=== PATIENT | female | born 1935 | race Caucasian/White ===

== ENCOUNTER → 2018-09-14 09:07 | Outpatient (CLI) | payer OTHER, SELFPAY ==
[2018-09-14 10:09] LABS: Add Manual Diff / Slide Review NO; Basophils Absolute Auto 100 /uL (0-100); Eosinophils Absolute Auto 100 /uL (0-450); Eosinophils Percent Auto 1.4 % (2-4); Hematocrit 36.9 % (36-46); Hemoglobin 12.2 g/dL (12.0-16.0); Lymphocytes Absolute Auto 2000 /uL (1100-4500); Lymphocytes Percent Auto 29.5 % (25-40); Mean Corpuscular HGB Conc 33.1 % (30-36); Mean Corpuscular Hemoglobin 28.7 PG (26-34); Mean Corpuscular Volume 86.9 fL (80-100); Monocytes Absolute Auto 500 /uL (0-900); Monocytes Percent Auto 6.9 % (3-14); Neutrophils Absolute Auto 4100 /uL (1500-7000); Neutrophils Percent Auto 61.2 % (50-75); Platelet Count 303 X10^3/uL (150-400); Red Blood Cell Count 4.25 X10^6/uL (4.0-5.2); Red Cell Distribution Width 14.1 % (11.6-14.8); White Blood Cell Count 6.7 X10^3/uL (4.5-11.0)
[2018-09-14 10:22] LABS: Alanine Aminotransferase 20 IU/L (9-52); Albumin 4.2 g/dL (3.5-5.0); Albumin Globulin Ratio 1.6 (1.0-2.8); Alkaline Phosphatase 57 U/L (38-126); Aspartate Aminotransferase 19 IU/L (14-36); Bilirubin Total 0.6 mg/dL (0.2-1.3); Blood Urea Nitrogen 21 mg/dL (7-17); Calcium 9.8 mg/dL (8.4-10.2); Carbon Dioxide 28 mmol/L (22-32); Chloride 103 mmol/L (98-107); Estimated Glomerular Filt Rate > 60.0 mL/min (>60); Globulin 2.7 g/dL (1.7-4.1); Glucose 101 mg/dL (80-110); HEMOLYSIS < 15 (0-50); Magnesium 1.7 mg/dL (1.6-2.3); Potassium 4.9 mmol/L (3.4-5.1); Sodium 141 mmol/L (137-145); Total Protein 6.9 g/dL (6.3-8.2)
[2018-09-14 10:23] LABS: Hemoglobin A1C% w Est Avg Glu 5.9 % (4.0-6.0)
[2018-09-14 11:00] LABS: TSH w/ Reflex to FT4 4.09 uIU/mL (0.47-4.68)
[2018-09-14 11:15] LABS: Vitamin B12 245 pg/mL (239-931)
== END ==
PROVIDERS: PCP Student in an Organized Health Care Education/Training Program; Visit Provider Student in an Organized Health Care Education/Training Program
DX: Z13.820 Encounter for screening for osteoporosis (principal); M85.852 Other specified disorders of bone density and structure, left thigh; Z78.0 Asymptomatic menopausal state; E11.9 Type 2 diabetes mellitus without complications; Z82.62 Family history of osteoporosis; E03.9 Hypothyroidism, unspecified; R25.2 Cramp and spasm; E55.9 Vitamin D deficiency, unspecified; I10 Essential (primary) hypertension; Z79.899 Other long term (current) drug therapy
CPT/HCPCS: 36415; 77080; 80053; 82306; 82607; 83036; 83735; 84443; 85025

== ENCOUNTER → 2018-12-18 14:39 | Outpatient (CLI) | payer OTHER, MEDICARE, SELFPAY ==
--- NOTE | 2018-12-18 | DI.MG.S_ITS ---
BILATERAL DIGITAL SCREENING MAMMOGRAM 3D/2D WITH CAD: 12/18/2018 CLINICAL: Routine screening. Family history of breast cancer. Comparison is made to exams dated: 12/17/2017 mammogram, 11/11/2016 mammogram, and 11/10/2015 mammogram - [facility]. The tissue of both breasts is predominantly fatty. Current study was also evaluated with a Computer Aided Detection (CAD) system. No significant masses, calcifications, or other findings are seen in either breast. There has been no significant interval change. IMPRESSION: NEGATIVE There is no mammographic evidence of malignancy. A 1 year screening mammogram is recommended. This exam was interpreted at Station ID: [id number]. NOTE: For mammograms, a report in lay terms will be sent to the patient. Approximately 15% of breast malignancies will not be visualized mammographically. In the management of a palpable breast mass, a negative mammogram must not discourage biopsy of a clinically suspicious lesion. Electronically Signed By: Lanny friedman/suman:12/18/2018 15:36:17 letter sent: Normal Exam ACR BI-RADS Category 1: Negative [id number]
== END ==
PROVIDERS: PCP Student in an Organized Health Care Education/Training Program; Visit Provider Student in an Organized Health Care Education/Training Program
DX: Z12.31 Encounter for screening mammogram for malignant neoplasm of breast (principal); Z80.3 Family history of malignant neoplasm of breast
CPT/HCPCS: 77063; 77067

== ENCOUNTER → 2019-03-21 09:18 | Outpatient (CLI) | payer OTHER, MEDICARE, SELFPAY ==
[2019-03-21 10:43] LABS: Hemoglobin A1C% w Est Avg Glu 5.7 % (4.0-6.0)
[2019-03-21 10:47] LABS: Blood Urea Nitrogen 14 mg/dL (7-17); Calcium 9.6 mg/dL (8.4-10.2); Carbon Dioxide 31 mmol/L (22-32); Chloride 103 mmol/L (98-107); Estimated Glomerular Filt Rate > 60.0 mL/min (>60); Glucose 101 mg/dL (80-110); HEMOLYSIS < 15 (0-50); Magnesium 1.8 mg/dL (1.6-2.3); Potassium 4.3 mmol/L (3.4-5.1); Sodium 142 mmol/L (137-145)
== END ==
PROVIDERS: PCP Student in an Organized Health Care Education/Training Program; Visit Provider Student in an Organized Health Care Education/Training Program
DX: E11.9 Type 2 diabetes mellitus without complications (principal); R25.2 Cramp and spasm
CPT/HCPCS: 36415; 80048; 83036; 83735

== ENCOUNTER 2019-04-04 11:40 | Emergency (ER) | payer OTHER, SELFPAY ==
--- NOTE | 2019-04-04 11:47 | DI.RAD.S_ITS ---
PROCEDURE: XR ANKLE LT MIN 3V INDICATIONS: Injury, Pain TECHNIQUE: 3 views of the ankle were acquired. COMPARISON: None. FINDINGS: Bones: No fractures or dislocations. Ankle mortise is normally aligned. No suspicious bony lesions. Tibiotalar degenerative spurring is present mild joint space narrowing. Lateral posterior calcaneal spur Soft tissues: No tibiotalar joint effusion. Achilles tendon appears normal. IMPRESSION: No acute fracture. If the patient's pain or other symptoms persist, consider further evaluation with MRI Chronic degenerative changes as above Dictated by: Casper Mack M.D. on 04/04/2019 at 12:46 Approved by: Casper Mack M.D. on 04/04/2019 at 13:03
[2019-04-04 11:49] VITALS: BP 146/59; PULSE 71; RESP 18; TEMP 36.6; O2SAT 97
[2019-04-04 11:54] VITALS: BP 146/59; PULSE 71; RESP 18; TEMP 36.6; O2SAT 97
--- NOTE | 2019-04-04 11:55 | DI.RAD.S_ITS ---
PROCEDURE: XR FOOT LT MIN 3V INDICATIONS: foot pain after rolling ankle TECHNIQUE: 3 views of the foot were acquired. COMPARISON: None. FINDINGS: Bones: No fractures or dislocations. No suspicious bony lesions. Plantar posterior calcaneal spur. Diffuse mid foot degeneration. Soft tissues: No tibiotalar joint effusion. Achilles tendon appears normal. IMPRESSION: No fracture. If the patient's symptoms do not improve recommend followup radiographs in 10 days to assess for healing sclerosis/occult injury. Dictated by: Casper Mack M.D. on 04/04/2019 at 13:03 Approved by: Casper Mack M.D. on 04/04/2019 at 13:11
[2019-04-04 12:00] VITALS: BP 154/69; PULSE 72; RESP 17; O2SAT 99
--- NOTE | 2019-04-04 12:07 | ED.LOWEXIN ---
HPI - Extremity Injury (Lower) <Beryl Noriega, CHOPPED STRAND OPERATOR-BC - Last Filed: 04/04/19 15:00> General Chief Complaint: Extremity Injury, Lower Stated Complaint: rolled her left ankle last night, sore today Time Seen by Provider: 04/04/19 11:50 Source: patient Mode of arrival: ambulatory Limitations: no limitations History of Present Illness HPI Narrative: The patient is an 83-year-old female nonsmoker Who presents with a chief complaint of ankle pain. She states she was walking yesterday, showing friends around the area when she rolled her left ankle in. She complains of left ankle and foot pain. She has been ambulating since the incident. She denies any falling. She presents today because the pain is not fully improved. Foot. She has not taken anything for the pain. She has wrapped it with a bandage. Related Data Home Medications Medication Instructions Recorded Confirmed Fish Oil 1,200 mg PO DAILY #0 02/27/13 02/28/19 cholecalciferol (vitamin D3) 1,000 units PO DAILY #0 02/27/13 02/28/19 [Vitamin D3] vitamins A,C,X-[id number]-[id number] 14,320 1 cap PO BID 10/23/18 04/04/19 unit-226 mg-200 unit capsule aspirin 81 mg tablet,delayed 81 mg PO DAILY 02/28/19 04/04/19 release Disabled Parking Permit 1 ea MISCELLANEOUS DIRECTED 04/04/19 escitalopram oxalate 10 mg PO DAILY 04/04/19 04/04/19 gabapentin [Neurontin] 300 mg PO BEDTIME 04/04/19 04/04/19 oxybutynin chloride 5 mg PO DAILY 04/04/19 04/04/19 potassium chloride 40 meq PO BID 04/04/19 04/04/19 simvastatin [Zocor] 20 mg PO DAILY 04/04/19 04/04/19 trazodone 50 mg PO BEDTIME 04/04/19 04/04/19 Previous Rx's Medication Instructions Recorded blood sugar diagnostic strips #100 each 05/03/18 fluticasone propionate 50 2 spray NASAL DAILY #9.9 gram 10/23/18 mcg/actuation nasal spray,suspension omeprazole 20 mg capsule,delayed 20 mg PO QDAY@0600 #90 tab 10/26/18 release lancets 33 gauge #100 each 11/27/18 metformin 500 mg tablet 500 mg PO DAILY #90 tab 02/15/19 losartan 25 mg tablet 25 mg PO DAILY #90 tab 02/28/19 Allergies Allergy/AdvReac Type Severity Reaction Status Date / Time lisinopril AdvReac Intermediate Vomiting Verified 02/28/19 09:19 Review of Systems <YULY Haney - Last Filed: 04/04/19 15:00> Review of Systems GENERAL: Denies chills, fatigue, malaise, fever, sweats. HEENT: Denies sinus pain, ear pain, sore throat, difficulty swallowing, dizziness. RESPIRATORY: Denies dyspnea, cough, wheezing, hemoptysis, sputum. CARDIOVASCULAR: Denies chest pain, palpitations, orthopnea, edema, GASTROINTESTINAL: Denies nausea, vomiting, abdominal pain, diarrhea, constipation, melena. : Denies dysuria, frequency, incontinence, hematuria, urinary retention. MUSCULOSKELETAL: See HPI SKIN: Denies rash, skin lesions, or other NEUROLOGIC: Denies weakness, headache, numbness, change in speech, confusion, seizures, incoordination. PSYCHIATRIC: No concerning psychosocial issues. 12 point review of systems is negative except for those stated above PFSH <YULY Haney - Last Filed: 04/04/19 15:00> Medical History Ankle pain (Chronic ~1989) Cataract (Chronic 2011) Chronic back pain (Chronic ~1989) Chronic cough (Chronic 2013) Chronic headaches (Chronic) Depression (Chronic 2000) Diabetes mellitus (Chronic 2010) Fibromyalgia (Chronic ~1989) Foot pain (Chronic 2000) Gout (Chronic 2000) Hypertension (Chronic) Macular degeneration (Chronic 2010) Osteoarthritis (Chronic 2012) Partial blindness (Chronic 2010) BCC (basal cell carcinoma of skin) (Resolved 2012) Chicken pox (Resolved ~1940) Distal radius fracture, right (Resolved 10/09/17) Fractures (Resolved 2006) History of vaginal delivery (Resolved) Measles (Resolved ~1940) Mumps (Resolved ~1940) Surgical History Anesthesia (Resolved) History of colonoscopy (Resolved 12/18/09) History of knee replacement (Resolved 08/27/13) History of knee replacement (Resolved 05/20/14) History of open reduction and internal fixation (ORIF) procedure (Resolved 10/18/17) Status post cholecystectomy (Resolved 1986) Status post discectomy (Resolved 2001) Status post hemorrhoidectomy (Resolved) Family History Brother Heart disease Hypertension Diabetes mellitus Sister Age: 73 Overweight Brother Cancer Hodgkin's disease Father Broken hip Mother Gallbladder disease Sister History of heart artery stent Grandfather No problems noted. Grandmother No problems noted. Grandfather No problems noted. Grandmother No problems noted. Social History Smoking Status: Never smoker alcohol intake: current substance use type: does not use Family History Brother Heart disease Hypertension Diabetes mellitus Sister Age: 73 Overweight Brother Cancer Hodgkin's disease Father Broken hip Mother Gallbladder disease Sister History of heart artery stent Grandfather No problems noted. Grandmother No problems noted. Grandfather No problems noted. Grandmother No problems noted. Social History Smoking Status: Never smoker alcohol intake: current substance use type: does not use Exam <YULY Haney - Last Filed: 04/04/19 15:00> Narrative Exam Narrative: GENERAL: This is a well-nourished, well-developed patient,no acute distress HEAD: Atraumatic. Normocephalic. No temporal or scalp tenderness. EYES: Pupils equal round and reactive. Extraocular motions intact. No scleral icterus. No injection or drainage. ENT: Nose without bleeding, purulent drainage or septal hematoma. Throat without erythema, tonsillar hypertrophy or exudate. Uvula midline. Airway patent. NECK: Trachea midline. No JVD or lymphadenopathy. Supple, nontender, no meningeal signs. CARDIOVASCULAR: Regular rate and rhythm RESPIRATORY: No cough. No increased respiratory effort. No accessory muscle use. GASTROINTESTINAL: Abdomen soft, non-tender, nondistended. No hepato-splenomegaly, or palpable masses. No guarding. EXTREMITIES: Pain to palpation left ankle and across the fall of left foot. Positive pedal pulses. No obvious pedal edema on left side. Able to flex and extend left foot. Decreased rotation noted left ankle. BACK: Nontender without deformity or crepitance. No flank tenderness. NEURO: AOx3. SKIN: No erythema ecchymosis rest her abrasion and noted left foot or ankle. Initial Vital Signs Initial Vital Signs: Vital Signs Temperature 97.8 F 04/04/19 11:49 Pulse Rate 71 04/04/19 11:49 Respiratory Rate 18 04/04/19 11:49 Blood Pressure 146/59 H 04/04/19 11:49 Pulse Oximetry 97 04/04/19 11:49 <DO Gita Gonzalez Last Filed: 04/04/19 18:36> Initial Vital Signs Initial Vital Signs: Vital Signs Temperature 97.8 F 04/04/19 11:49 Pulse Rate 71 04/04/19 11:49 Respiratory Rate 18 04/04/19 11:49 Blood Pressure 146/59 H 04/04/19 11:49 Pulse Oximetry 97 04/04/19 11:49 Procedures <YULY Haney - Last Filed: 04/04/19 15:00> Orthopedic Splinting/Casting Injury #1: Side: left Lower Extremity Injury Location: ankle and foot Lower Extremity Immobilizer: stirrup splint and Maykel wrap Post splinting neuro exam: intact Post splinting vascular exam: intact Placed by: Nursing Course <YULY Haney - Last Filed: 04/04/19 15:00> Orders Ordered: ED Orders 04/04/19 11:47 XR ankle LT min 3V Stat 04/04/19 11:55 XR foot LT min 3V Stat Vital Signs - 8 hr 04/04/19 11:49 04/04/19 11:54 04/04/19 12:00 Temperature 97.8 F 97.8 F Pulse Rate 71 71 72 Respiratory Rate 18 18 17 Blood Pressure 146/59 H Blood Pressure [Right Arm] 146/59 H 154/69 H Pulse Oximetry 97 97 99 04/04/19 14:13 Temperature Pulse Rate 66 Respiratory Rate 18 Blood Pressure Blood Pressure [Right Arm] 155/69 H Pulse Oximetry 98 <DO Gita Gonzalez Filed: 04/04/19 18:36> Orders Ordered: ED Orders 04/04/19 11:47 XR ankle LT min 3V Stat 04/04/19 11:55 XR foot LT min 3V Stat Vital Signs - 8 hr 04/04/19 11:49 04/04/19 11:54 04/04/19 12:00 Temperature 97.8 F 97.8 F Pulse Rate 71 71 72 Respiratory Rate 18 18 17 Blood Pressure 146/59 H Blood Pressure [Right Arm] 146/59 H 154/69 H Pulse Oximetry 97 97 99 04/04/19 14:13 Temperature Pulse Rate 66 Respiratory Rate 18 Blood Pressure Blood Pressure [Right Arm] 155/69 H Pulse Oximetry 98 MDM - Extremity Injury (Lower) <YULY Haney - Last Filed: 04/04/19 15:00> Imaging Data foot xray : Radiologist's impression: [address] [address] XRay Report Signed Patient: Elaina Gonzalez [facility]#: [id number] : 6Acct:[id number] Age/Sex: 83 / FDate of Service: 04/04/19 Loc: ED Accession Number: [id number] Procedure: XR foot LT min 3V Ordering Provider: Beryl Noriega PROCEDURE: XR FOOT LT MIN 3V INDICATIONS: foot pain after rolling ankle TECHNIQUE: 3 views of the foot were acquired. COMPARISON: None. FINDINGS: Bones: No fractures or dislocations. No suspicious bony lesions. Plantar posterior calcaneal spur. Diffuse mid foot degeneration. Soft tissues: No tibiotalar joint effusion. Achilles tendon appears normal. IMPRESSION: No fracture. If the patient's symptoms do not improve recommend followup radiographs in 10 days to assess for healing sclerosis/occult injury. Dictated by: Casper Mack M.D. on 04/04/2019 at 13:03 Approved by: Casper Mack M.D. on 04/04/2019 at 13:11 ankle xray : Radiologist's impression: [address] [address] XRay Report Signed Patient: GonzalezElaina [facility]#: [id number] : 6Acct:[id number] Age/Sex: 83 / FDate of Service: 04/04/19 Loc: ED Accession Number: [id number] Procedure: XR ankle LT min 3V Ordering Provider: Beryl Nolasco D.O. PROCEDURE: XR ANKLE LT MIN 3V INDICATIONS: Injury, Pain TECHNIQUE: 3 views of the ankle were acquired. COMPARISON: None. FINDINGS: Bones: No fractures or dislocations. Ankle mortise is normally aligned. No suspicious bony lesions. Tibiotalar degenerative spurring is present mild joint space narrowing. Lateral posterior calcaneal spur Soft tissues: No tibiotalar joint effusion. Achilles tendon appears normal. IMPRESSION: No acute fracture. If the patient's pain or other symptoms persist, consider further evaluation with MRI Chronic degenerative changes as above Dictated by: Casper Mack M.D. on 04/04/2019 at 12:46 Approved by: Casper Mack M.D. on 04/04/2019 at 13:03 MDM Narrative Medical decision making narrative: The patient is an 83-year-old female who presents today after twisting her ankle. She did not fall, just twisted her left ankle. She is able to weight bear. She has negative x-rays of her foot and ankle. She is neurovascularly intact. She was placed in a stirrup splint and Maykel bandage by nursing. Pulse motor sensory was intact before and after application. Discussed at length follow up with PCP. Discussed the possibility of an occult fracture and/or soft tissue injury. Encouraged rest ice compression elevation as well as [id number] pain medications as needed and able. Patient states understanding and has no questions or concerns upon discharge. Discussed going back to the ER for any acute concerns. Discharge Plan Departure Patient Disposition: Home Clinical Impression: Ankle pain Qualifiers: Chronicity: acute Laterality: left Qualified Code(s): M25.572 - Pain in left ankle and joints of left foot Discharge Date/Time: 04/04/19 14:45 Interventions: ED Discharge Assessment Last Done: 04/04/19 14:44 Instructions: DI for Ankle Sprain, How To Perform RICE (Rest, Ice, Compress, Elevate), DI for Ankle Pain Activity Restrictions/Additional Instructions: Your x-ray shows no fracture or acute findings. Please follow up with your primary care provider. Please use rest ice compression elevation as well as [id number] medications as needed and able. Please remember that x-ray does not rule out soft tissue injury or an occult fracture. Please come back to emergency department for any acute concerns. Prescriptions: No Action Fish Oil 1,200 mg PO DAILY Qty: 0 RF: 0 cholecalciferol (vitamin D3) [Vitamin D3] 1,000 unit Capsule 1,000 units PO DAILY Qty: 0 RF: 0 blood sugar diagnostic [OneTouch Ultra Blue Test Strip] strip .Route .MEDSUPPLY Qty: 100 RF: 12 omeprazole 20 mg capsule,delayed release(DR/EC) 20 mg PO QDAY@0600 Qty: 90 RF: 1 lancets [OneTouch Delica Lancets] 33 gauge misc .ROUTE .MEDSUPPLY Qty: 100 RF: 5 metformin [Glucophage] 500 mg tablet 500 mg PO DAILY Qty: 90 RF: 3 PreserVision AREDS 14,320-226-200 [id number] capsule 1 cap PO BID RF: 0 fluticasone propionate 50 mcg/actuation spray,suspension 2 spray NASAL DAILY Qty: 9.9 RF: 3 aspirin [Adult Low Dose Aspirin] 81 mg tablet,delayed release (DR/EC) 81 mg PO DAILY RF: 0 losartan 25 mg tablet 25 mg PO DAILY Qty: 90 RF: 3 potassium chloride 20 mEq tablet,ER particles/crystals 40 meq PO BID RF: 0 trazodone 50 mg tablet 50 mg PO BEDTIME RF: 0 simvastatin [Zocor] 20 mg tablet 20 mg PO DAILY RF: 0 gabapentin [Neurontin] 300 mg capsule 300 mg PO BEDTIME RF: 0 oxybutynin chloride 5 mg tablet 5 mg PO DAILY RF: 0 escitalopram oxalate 10 mg tablet 10 mg PO DAILY RF: 0 Disabled Parking Permit 1 ea miscellaneous DIRECTED RF: 0 Referrals: Billy Cano MD [Primary Care Provider] - <Beryl Nolasco DO - Last Filed: 04/04/19 18:36> Cosign ED Attending Cosignature Attestation: I was immediately available in the department for consultation. This documentation has been reviewed and I agree with assessment and plan. Supervised by Beryl Nolasco DO
--- NOTE | 2019-04-04 12:11 | ED_ITS ---
HPI - Extremity Injury (Lower) <Beryl Noriega, MANAGER ASSET MANAGEMENT-BC - Last Filed: 04/04/19 15:00> General Chief Complaint: Extremity Injury, Lower Stated Complaint: rolled her left ankle last night, sore today Time Seen by Provider: 04/04/19 11:50 Source: patient Mode of arrival: ambulatory Limitations: no limitations History of Present Illness HPI Narrative: The patient is an 83-year-old female nonsmoker Who presents with a chief complaint of ankle pain. She states she was walking yesterday, showing friends around the area when she rolled her left ankle in. She complains of left ankle and foot pain. She has been ambulating since the incident. She denies any falling. She presents today because the pain is not fully improved. Foot. She has not taken anything for the pain. She has wrapped it with a bandage. Related Data Home Medications Medication Instructions Recorded Confirmed Fish Oil 1,200 mg PO DAILY #0 02/27/13 02/28/19 cholecalciferol (vitamin D3) 1,000 units PO DAILY #0 02/27/13 02/28/19 [Vitamin D3] vitamins A,C,K-vpcj-ddgtro 14,320 1 cap PO BID 10/23/18 04/04/19 unit-226 mg-200 unit capsule aspirin 81 mg tablet,delayed 81 mg PO DAILY 02/28/19 04/04/19 release Disabled Parking Permit 1 ea MISCELLANEOUS DIRECTED 04/04/19 escitalopram oxalate 10 mg PO DAILY 04/04/19 04/04/19 gabapentin [Neurontin] 300 mg PO BEDTIME 04/04/19 04/04/19 oxybutynin chloride 5 mg PO DAILY 04/04/19 04/04/19 potassium chloride 40 meq PO BID 04/04/19 04/04/19 simvastatin [Zocor] 20 mg PO DAILY 04/04/19 04/04/19 trazodone 50 mg PO BEDTIME 04/04/19 04/04/19 Previous Rx's Medication Instructions Recorded blood sugar diagnostic strips #100 each 05/03/18 fluticasone propionate 50 2 spray NASAL DAILY #9.9 gram 10/23/18 mcg/actuation nasal spray,suspension omeprazole 20 mg capsule,delayed 20 mg PO QDAY@0600 #90 tab 10/26/18 release lancets 33 gauge #100 each 11/27/18 metformin 500 mg tablet 500 mg PO DAILY #90 tab 02/15/19 losartan 25 mg tablet 25 mg PO DAILY #90 tab 02/28/19 Allergies Allergy/AdvReac Type Severity Reaction Status Date / Time lisinopril AdvReac Intermediate Vomiting Verified 02/28/19 09:19 Review of Systems <YULY Haney - Last Filed: 04/04/19 15:00> Review of Systems GENERAL: Denies chills, fatigue, malaise, fever, sweats. HEENT: Denies sinus pain, ear pain, sore throat, difficulty swallowing, dizziness. RESPIRATORY: Denies dyspnea, cough, wheezing, hemoptysis, sputum. CARDIOVASCULAR: Denies chest pain, palpitations, orthopnea, edema, GASTROINTESTINAL: Denies nausea, vomiting, abdominal pain, diarrhea, constipation, melena. : Denies dysuria, frequency, incontinence, hematuria, urinary retention. MUSCULOSKELETAL: See HPI SKIN: Denies rash, skin lesions, or other NEUROLOGIC: Denies weakness, headache, numbness, change in speech, confusion, seizures, incoordination. PSYCHIATRIC: No concerning psychosocial issues. 12 point review of systems is negative except for those stated above PFSH <YULY Haney - Last Filed: 04/04/19 15:00> Medical History Ankle pain (Chronic ~1989) Cataract (Chronic 2011) Chronic back pain (Chronic ~1989) Chronic cough (Chronic 2013) Chronic headaches (Chronic) Depression (Chronic 2000) Diabetes mellitus (Chronic 2010) Fibromyalgia (Chronic ~1989) Foot pain (Chronic 2000) Gout (Chronic 2000) Hypertension (Chronic) Macular degeneration (Chronic 2010) Osteoarthritis (Chronic 2012) Partial blindness (Chronic 2010) BCC (basal cell carcinoma of skin) (Resolved 2012) Chicken pox (Resolved ~1940) Distal radius fracture, right (Resolved 10/09/17) Fractures (Resolved 2006) History of vaginal delivery (Resolved) Measles (Resolved ~1940) Mumps (Resolved ~1940) Surgical History Anesthesia (Resolved) History of colonoscopy (Resolved 12/18/09) History of knee replacement (Resolved 08/27/13) History of knee replacement (Resolved 05/20/14) History of open reduction and internal fixation (ORIF) procedure (Resolved 10/18/17) Status post cholecystectomy (Resolved 1986) Status post discectomy (Resolved 2001) Status post hemorrhoidectomy (Resolved) Family History Brother Heart disease Hypertension Diabetes mellitus Sister Age: 73 Overweight Brother Cancer Hodgkin's disease Father Broken hip Mother Gallbladder disease Sister History of heart artery stent Grandfather No problems noted. Grandmother No problems noted. Grandfather No problems noted. Grandmother No problems noted. Social History Smoking Status: Never smoker alcohol intake: current substance use type: does not use Family History Brother Heart disease Hypertension Diabetes mellitus Sister Age: 73 Overweight Brother Cancer Hodgkin's disease Father Broken hip Mother Gallbladder disease Sister History of heart artery stent Grandfather No problems noted. Grandmother No problems noted. Grandfather No problems noted. Grandmother No problems noted. Social History Smoking Status: Never smoker alcohol intake: current substance use type: does not use Exam <YULY Haney - Last Filed: 04/04/19 15:00> Narrative Exam Narrative: GENERAL: This is a well-nourished, well-developed patient,no acute distress HEAD: Atraumatic. Normocephalic. No temporal or scalp tenderness. EYES: Pupils equal round and reactive. Extraocular motions intact. No scleral icterus. No injection or drainage. ENT: Nose without bleeding, purulent drainage or septal hematoma. Throat without erythema, tonsillar hypertrophy or exudate. Uvula midline. Airway patent. NECK: Trachea midline. No JVD or lymphadenopathy. Supple, nontender, no meningeal signs. CARDIOVASCULAR: Regular rate and rhythm RESPIRATORY: No cough. No increased respiratory effort. No accessory muscle use. GASTROINTESTINAL: Abdomen soft, non-tender, nondistended. No hepato- splenomegaly, or palpable masses. No guarding. EXTREMITIES: Pain to palpation left ankle and across the fall of left foot. Positive pedal pulses. No obvious pedal edema on left side. Able to flex and extend left foot. Decreased rotation noted left ankle. BACK: Nontender without deformity or crepitance. No flank tenderness. NEURO: AOx3. SKIN: No erythema ecchymosis rest her abrasion and noted left foot or ankle. Initial Vital Signs Initial Vital Signs: Vital Signs Temperature 97.8 F 04/04/19 11:49 Pulse Rate 71 04/04/19 11:49 Respiratory Rate 18 04/04/19 11:49 Blood Pressure 146/59 H 04/04/19 11:49 Pulse Oximetry 97 04/04/19 11:49 <DO Gita Gonzalez Last Filed: 04/04/19 18:36> Initial Vital Signs Initial Vital Signs: Vital Signs Temperature 97.8 F 04/04/19 11:49 Pulse Rate 71 04/04/19 11:49 Respiratory Rate 18 04/04/19 11:49 Blood Pressure 146/59 H 04/04/19 11:49 Pulse Oximetry 97 04/04/19 11:49 Procedures <YULY Haney - Last Filed: 04/04/19 15:00> Orthopedic Splinting/Casting Injury #1: Side: left Lower Extremity Injury Location: ankle and foot Lower Extremity Immobilizer: stirrup splint and Maykel wrap Post splinting neuro exam: intact Post splinting vascular exam: intact Placed by: Nursing Course <YULY Haney - Last Filed: 04/04/19 15:00> Orders Ordered: ED Orders 04/04/19 11:47 XR ankle LT min 3V Stat 04/04/19 11:55 XR foot LT min 3V Stat Vital Signs - 8 hr 04/04/19 11:49 04/04/19 11:54 04/04/19 12:00 Temperature 97.8 F 97.8 F Pulse Rate 71 71 72 Respiratory Rate 18 18 17 Blood Pressure 146/59 H Blood Pressure [Right Arm] 146/59 H 154/69 H Pulse Oximetry 97 97 99 04/04/19 14:13 Temperature Pulse Rate 66 Respiratory Rate 18 Blood Pressure Blood Pressure [Right Arm] 155/69 H Pulse Oximetry 98 <DO Gita Gonzalez Filed: 04/04/19 18:36> Orders Ordered: ED Orders 04/04/19 11:47 XR ankle LT min 3V Stat 04/04/19 11:55 XR foot LT min 3V Stat Vital Signs - 8 hr 04/04/19 11:49 04/04/19 11:54 04/04/19 12:00 Temperature 97.8 F 97.8 F Pulse Rate 71 71 72 Respiratory Rate 18 18 17 Blood Pressure 146/59 H Blood Pressure [Right Arm] 146/59 H 154/69 H Pulse Oximetry 97 97 99 04/04/19 14:13 Temperature Pulse Rate 66 Respiratory Rate 18 Blood Pressure Blood Pressure [Right Arm] 155/69 H Pulse Oximetry 98 MDM - Extremity Injury (Lower) <YULY Haney - Last Filed: 04/04/19 15:00> Imaging Data foot xray : Radiologist's impression: [address] [address] XRay Report Signed Patient: Elaina Gonzalez [facility]#: [id number] : 6Acct:[id number] Age/Sex: 83 / FDate of Service: 04/04/19 Loc: ED Accession Number: [id number] Procedure: XR foot LT min 3V Ordering Provider: Beryl Noriega PROCEDURE: XR FOOT LT MIN 3V INDICATIONS: foot pain after rolling ankle TECHNIQUE: 3 views of the foot were acquired. COMPARISON: None. FINDINGS: Bones: No fractures or dislocations. No suspicious bony lesions. Plantar posterior calcaneal spur. Diffuse mid foot degeneration. Soft tissues: No tibiotalar joint effusion. Achilles tendon appears normal. IMPRESSION: No fracture. If the patient's symptoms do not improve recommend followup radiographs in 10 days to assess for healing sclerosis/occult injury. Dictated by: Casper Mack M.D. on 04/04/2019 at 13:03 Approved by: Casper Mack M.D. on 04/04/2019 at 13:11 ankle xray : Radiologist's impression: [address] [address] XRay Report Signed Patient: GonzalezElaina [facility]#: [id number] : 6Acct:[id number] Age/Sex: 83 / FDate of Service: 04/04/19 Loc: ED Accession Number: [id number] Procedure: XR ankle LT min 3V Ordering Provider: Beryl Nolasco D.O. PROCEDURE: XR ANKLE LT MIN 3V INDICATIONS: Injury, Pain TECHNIQUE: 3 views of the ankle were acquired. COMPARISON: None. FINDINGS: Bones: No fractures or dislocations. Ankle mortise is normally aligned. No suspicious bony lesions. Tibiotalar degenerative spurring is present mild joint space narrowing. Lateral posterior calcaneal spur Soft tissues: No tibiotalar joint effusion. Achilles tendon appears normal. IMPRESSION: No acute fracture. If the patient's pain or other symptoms persist, consider further evaluation with MRI Chronic degenerative changes as above Dictated by: Casper Mack M.D. on 04/04/2019 at 12:46 Approved by: Casper Mack M.D. on 04/04/2019 at 13:03 MDM Narrative Medical decision making narrative: The patient is an 83-year-old female who presents today after twisting her ankle. She did not fall, just twisted her left ankle. She is able to weight bear. She has negative x-rays of her foot an d ankle. She is neurovascularly intact. She was placed in a stirrup splint and Maykel bandage by nursing. Pulse motor sensory was intact before and after application. Discussed at length follow up with PCP. Discussed the possibility of an occult fracture and/or soft tissue injury. Encouraged rest ice compression elevation as well as [id number] pain medications as needed and able. Patient states understanding and has no questions or concerns upon discharge. Discussed going back to the ER for any acute concerns. Discharge Plan Departure Patient Disposition: Home Clinical Impression: Ankle pain Qualifiers: Chronicity: acute Laterality: left Qualified Code(s): M25.572 - Pain in left ankle and joints of left foot Discharge Date/Time: 04/04/19 14:45 Interventions: ED Discharge Assessment Last Done: 04/04/19 14:44 Instructions: DI for Ankle Sprain, How To Perform RICE (Rest, Ice, Compress, Elevate), DI for Ankle Pain Activity Restrictions/Additional Instructions: Your x-ray shows no fracture or acute findings. Please follow up with your primary care provider. Please use rest ice compression elevation as well as zhii-cuf-ovmiyca medications as needed and able. Please remember that x-ray does not rule out soft tissue injury or an occult fracture. Please come back to emergency department for any acute concerns. Prescriptions: No Action Fish Oil 1,200 mg PO DAILY Qty: 0 RF: 0 cholecalciferol (vitamin D3) [Vitamin D3] 1,000 unit Capsule 1,000 units PO DAILY Qty: 0 RF: 0 blood sugar diagnostic [OneTouch Ultra Blue Test Strip] strip .Route .MEDSUPPLY Qty: 100 RF: 12 omeprazole 20 mg capsule,delayed release(DR/EC) 20 mg PO QDAY@0600 Qty: 90 RF: 1 lancets [OneTouch Delica Lancets] 33 gauge misc .ROUTE .MEDSUPPLY Qty: 100 RF: 5 metformin [Glucophage] 500 mg tablet 500 mg PO DAILY Qty: 90 RF: 3 PreserVision AREDS 14,320-226-200 [id number] capsule 1 cap PO BID RF: 0 fluticasone propionate 50 mcg/actuation spray,suspension 2 spray NASAL DAILY Qty: 9.9 RF: 3 aspirin [Adult Low Dose Aspirin] 81 mg tablet,delayed release (DR/EC) 81 mg PO DAILY RF: 0 losartan 25 mg tablet 25 mg PO DAILY Qty: 90 RF: 3 potassium chloride 20 mEq tablet,ER particles/crystals 40 meq PO BID RF: 0 trazodone 50 mg tablet 50 mg PO BEDTIME RF: 0 simvastatin [Zocor] 20 mg tablet 20 mg PO DAILY RF: 0 gabapentin [Neurontin] 300 mg capsule 300 mg PO BEDTIME RF: 0 oxybutynin chloride 5 mg tablet 5 mg PO DAILY RF: 0 escitalopram oxalate 10 mg tablet 10 mg PO DAILY RF: 0 Disabled Parking Permit 1 ea miscellaneous DIRECTED RF: 0 Referrals: Billy Cano MD [Primary Care Provider] - <Beryl Nolasco DO - Last Filed: 04/04/19 18:36> Cosign ED Attending Cosignature Attestation: I was immediately available in the department for consultation. This documentation has been reviewed and I agree with assessment and plan. Supervised by Beryl Nolasco DO
[2019-04-04 14:13] VITALS: BP 155/69; PULSE 66; RESP 18; O2SAT 98
== END 2019-04-04 14:45 | disposition home or self-care (01) ==
PROVIDERS: Emergency Provider Nurse Practitioner Family; PCP Student in an Organized Health Care Education/Training Program
DX: M25.572 Pain in left ankle and joints of left foot (principal); X50.9XXA Other and unspecified overexertion or strenuous movements or postures, initial encounter; Y93.01 Activity, walking, marching and hiking
CPT/HCPCS: 29540; 73610; 73630; 99283

== ENCOUNTER → 2019-08-27 09:29 | Outpatient (CLI) | payer OTHER, MEDICARE, SELFPAY ==
[2019-08-27 10:40] LABS: Hemoglobin A1C% w Est Avg Glu 5.7 % (4.0-6.0)
[2019-08-28 15:14] LABS: Creatinine Urine Random 160.9 mg/dL
[2019-08-28 15:19] LABS: Microalbumi Creatinin Ratio Ur 33.5 ug/mg CR (<30); Microalbumin Urine Random 5.4 mg/dL (0-1.6)
== END ==
PROVIDERS: PCP Student in an Organized Health Care Education/Training Program; Visit Provider Student in an Organized Health Care Education/Training Program
DX: E11.9 Type 2 diabetes mellitus without complications (principal)
CPT/HCPCS: 36415; 82043; 82570; 83036

== ENCOUNTER → 2020-01-30 14:52 | Outpatient (CLI) | payer OTHER, MEDICARE, SELFPAY ==
--- NOTE | 2020-01-30 14:54 | DI.MG.S_ITS ---
BILATERAL DIGITAL SCREENING MAMMOGRAM 3D/2D WITH CAD: 01/30/2020 CLINICAL: Routine screening. Family history of breast cancer. Comparison is made to exams dated: 12/18/2018 mammogram, 12/17/2017 mammogram, and 11/11/2016 mammogram - [facility]. The tissue of both breasts is heterogeneously dense. This may lower the sensitivity of mammography. Current study was also evaluated with a Computer Aided Detection (CAD) system. No significant masses, calcifications, or other findings are seen in either breast. There has been no significant interval change. IMPRESSION: NEGATIVE There is no mammographic evidence of malignancy. A 1 year screening mammogram is recommended. This exam was interpreted at Station ID: [id number]. NOTE: For mammograms, a report in lay terms will be sent to the patient. Approximately 15% of breast malignancies will not be visualized mammographically. In the management of a palpable breast mass, a negative mammogram must not discourage biopsy of a clinically suspicious lesion. Electronically Signed By: Lanny friedman/suman:01/30/2020 15:56:30 letter sent: Normal Exam ACR BI-RADS Category 1: Negative 3341F
== END ==
PROVIDERS: PCP Student in an Organized Health Care Education/Training Program; Referring Provider Student in an Organized Health Care Education/Training Program; Visit Provider Student in an Organized Health Care Education/Training Program
DX: Z12.31 Encounter for screening mammogram for malignant neoplasm of breast (principal); Z80.3 Family history of malignant neoplasm of breast
CPT/HCPCS: 77063; 77067

== ENCOUNTER → 2020-02-01 12:16 | Outpatient (CLI) | payer OTHER, MEDICARE, SELFPAY ==
[2020-02-01 14:30] LABS: Hemoglobin A1C% w Est Avg Glu 5.6 % (4.0-6.0)
[2020-02-01 16:24] LABS: Creatinine Urine Random 204.9 mg/dL
[2020-02-01 16:28] LABS: Microalbumi Creatinin Ratio Ur 43.9 ug/mg CR (<30)
== END ==
PROVIDERS: PCP Student in an Organized Health Care Education/Training Program; Referring Provider Student in an Organized Health Care Education/Training Program; Visit Provider Student in an Organized Health Care Education/Training Program
DX: E11.9 Type 2 diabetes mellitus without complications (principal)
CPT/HCPCS: 36415; 82043; 82570; 83036

== ENCOUNTER → 2020-02-04 15:04 | Outpatient (CLI) | payer OTHER, MEDICARE, SELFPAY ==
[2020-02-04 17:19] LABS: Occult Blood 1 Negative (Negative); Occult Blood 2 Negative (Negative)
[2020-02-04 17:20] LABS: Occult Blood 3 Negative (Negative)
== END ==
PROVIDERS: PCP Student in an Organized Health Care Education/Training Program; Referring Provider Student in an Organized Health Care Education/Training Program; Visit Provider Student in an Organized Health Care Education/Training Program
DX: R10.9 Unspecified abdominal pain (principal); R14.3 Flatulence
CPT/HCPCS: 82270

== ENCOUNTER → 2020-03-12 11:12 | Outpatient (CLI) | payer OTHER, SELFPAY ==
--- NOTE | 2020-03-12 11:13 | DI.RAD.S_ITS ---
PROCEDURE: FL BARIUM SWALLOW W SPEECH INDICATIONS: Dysphagia, belching TECHNIQUE: Examination was conducted in conjunction with speech pathology per standard protocol. In the lateral projection, filming was performed of the patient swallowing. AP projection filming may also be performed with patient swallowing. COMPARISON: None. FINDINGS: Function: The oral preparatory phase appears normal, with proper containment. The subsequent oral propulsive phase, pharyngeal phase, and esophageal phase of swallowing also appear normal with all proffered substances. No laryngotracheal penetration or aspiration. No pathologic vallecular pooling. Morphology: No cricopharyngeal bar is identified. No cervical esophageal webs. No Zenker's diverticulum. No strictures. IMPRESSION: Unremarkable barium swallow with speech pathologist. Please refer to a separate speech pathologist report. Dictated by: Jordan Wang M.D. on 03/12/2020 at 12:41 Approved by: Jordan Wang M.D. on 03/12/2020 at 12:41
--- NOTE | 2020-03-12 14:01 | ST.SWALLOW ---
Visit Care Team Role Provider Type Billy Cano MD Attending Provider Physician Primary Care Provider Referring Provider Specialty: Internal Medicine Address: [address] [place] [address], [address] [place] [address], [id number] Email: [email or web address] Modified Barium Swallow Study ORE CRUSHER Modified Barium Swallow Study Start: 03/12/20 13:27 Freq: Status: Active Protocol: Document 03/12/20 13:27 LNK (Rec: 03/12/20 13:56 LNK [id number]) Modified Barium Swallow Study Total Time Visit Start Time 11:30 Visit Stop Time 12:00 Total Visit Minutes [address] Cano Reason for Referral dysphagia Setting Setting Outpatient Care Patient Information Identification Type Name,Date of Patient History According to physician report the pt reported a difference in muscle tone on the left side of her face starting about a year so ago. No clear inciting event. She has noticed a drooping of left- sided facial muscles. She believes she may have had a stroke. Exam is consistent with prior CVA, but the patient never noticed any event. Given the pt's report of frequent belching and flatus, there is a possibility that pt 's swallowing abnormalities may be neurological in nature. MBS was ordered. Subjective Observations Pt was seated in the floroscopy chair. Procedures and directions were provided. Pt indicated that she understood and agreed to proceed. Patient Positioning Position View Lateral Imaging Lateral View Textures Administered Trials Presented Thin Liquid via Spoon,Thin Liquid via Cup,Pudding Thick Liquid via Spoon,Regular Textures Oral Phase Source: MBSIMP (TM) (C) Bolus Specific Scoring Grid Lip Closure WFL Tongue Control During Bolus Hold WFL Bolus Prep/Mastication WFL Bolus Transport/Lingual Motion WFL A/P Lingual Propulsion Delay No Oral Residue Minimal Impairment Residue Clearing Minimal Impairment Nasal Regurgitation No Additional Oral Phase Observations Pt has upper and lower dentures which she reported to be fitting very well. Informal observation of OM structures and function were WFL Pharyngeal Phase Source: MBSIMP (TM) (C) Bolus Specific Scoring Grid Delayed Initiation of Pharyngeal Swallow No Soft Palate Elevation No Impairment (WNL) Tongue Base Strength/Range of Motion Mild Impairment Residue Along the Tongue Base Yes: Trace to minimal Clearance of Residue Along Tongue Base Minimal Impairment Laryngeal Elevation WFL Anterior Hyoid Movement WFL Epiglottic Range of Motion WFL Vallecular Residue Yes: Trace to minimal - cleared with subsequent swallow Clearance of Vallecular Residue WFL Laryngeal Vestibular Closure No Impairment (WNL) Pharyngeal Stripping Wave WFL Posterior Pharyngeal Wall Residue Yes: Trace to minimal - cleared with subsequent swallow Clearance of Posterior Pharyngeal Wall Minimal Impairment Residue Upper Esophageal Sphincter Opening Minimal Impairment Residue in the Pyriform Sinuses Yes: Trace Clearance of Residue in the Pyriform WFL Sinuses Esophageal Clearance Upright Position Minimal Impairment Pharyngoesophageal Backflow Observed No Additional Pharyngeal Phase Observations She has little to no residue within her pharynx following swallows. her swallow timing was prompt with no observable deficits. Relative to her belching and flatus, excess air was observed within the upper esophagus indicating possible aerophagia. A/P View Esophageal Observations Esophageal Function Possible aerophagia. Excess air in bolus when entering the esophagus. Refer to GI specialist Clinical Impressions Findings The pt presented with oropharyngeal swallowing that is considered to be WFL for her age. Pt did report that she tends to eat her meals fast and doesn't chew her food as well as she should. Additionally, she reported that she usually watches TV during meals. Distractions and not chewing enough can be related to frequent choking. There were no s/sx of muscle weakness as a result of a possible CVA in the past. Pt presented with a symmetrical rotary chew and hyolaryngeal elevation mid neck. Patient Appropriate for Therapy No Recommendations Diet Liquids Order Thin Diet Order Regular Aspiration Precautions Recommended Precautions Upright at 90 Degrees Treatment Plan Recommended Referrals Primary Care Physician,GI Consult
== END ==
PROVIDERS: PCP Student in an Organized Health Care Education/Training Program; Referring Provider Student in an Organized Health Care Education/Training Program; Visit Provider Student in an Organized Health Care Education/Training Program
DX: R13.10 Dysphagia, unspecified (principal); R14.2 Eructation
CPT/HCPCS: 74230; 92611

== ENCOUNTER → 2020-07-23 15:07 | Outpatient (CLI) | payer OTHER, SELFPAY ==
[2020-07-23 15:51] LABS: Hemoglobin A1C% w Est Avg Glu 5.9 % (4.0-6.0)
[2020-07-23 16:40] LABS: BUN Creatinine Ratio 30.4 (6-22); Blood Urea Nitrogen 21 mg/dL (7-17); Estimated Glomerular Filt Rate > 60.0 mL/min (>60)
[2020-07-23 17:13] LABS: Creatinine Urine Random 77.5 mg/dL
[2020-07-23 17:18] LABS: Microalbumi Creatinin Ratio Ur 60.6 ug/mg CR (<30); Microalbumin Urine Random 4.7 mg/dL (0-1.6)
== END ==
PROVIDERS: PCP Student in an Organized Health Care Education/Training Program; Referring Provider Student in an Organized Health Care Education/Training Program; Visit Provider Student in an Organized Health Care Education/Training Program
DX: E11.29 Type 2 diabetes mellitus with other diabetic kidney complication (principal); I10 Essential (primary) hypertension; R80.9 Proteinuria, unspecified
CPT/HCPCS: 36415; 82043; 82565; 82570; 83036; 84520

== ENCOUNTER → 2021-02-02 11:12 | Outpatient (CLI) | payer OTHER, SELFPAY ==
[2021-02-02 12:25] LABS: Hemoglobin A1C% w Est Avg Glu 5.7 % (4.0-6.0)
[2021-02-02 12:38] LABS: BUN Creatinine Ratio 22.5 (6-22); Blood Urea Nitrogen 16 mg/dL (7-17); Estimated Glomerular Filt Rate > 60.0 mL/min (>60)
== END ==
PROVIDERS: PCP Student in an Organized Health Care Education/Training Program; Referring Provider Student in an Organized Health Care Education/Training Program; Visit Provider Student in an Organized Health Care Education/Training Program
DX: E11.29 Type 2 diabetes mellitus with other diabetic kidney complication (principal); R80.9 Proteinuria, unspecified
CPT/HCPCS: 36415; 82565; 83036; 84520

== ENCOUNTER → 2021-02-27 11:10 | Outpatient (CLI) | payer OTHER, SELFPAY ==
--- NOTE | 2021-02-27 11:10 | DI.MG.S_ITS ---
BILATERAL DIGITAL SCREENING MAMMOGRAM 3D/2D WITH CAD: 02/27/2021 CLINICAL: Routine screening. Family history of breast cancer. Comparison is made to exams dated: 01/30/2020 mammogram, 12/18/2018 mammogram, and 12/17/2017 mammogram - [facility]. There are scattered fibroglandular elements in both breasts. Current study was also evaluated with a Computer Aided Detection (CAD) system. There are benign calcifications in the left breast. No significant masses, calcifications, or other findings are seen in either breast. There has been no significant interval change. IMPRESSION: BENIGN There is no mammographic evidence of malignancy. A 1 year screening mammogram is recommended. This exam was interpreted at Station ID: [id number]. NOTE: For mammograms, a report in lay terms will be sent to the patient. Approximately 15% of breast malignancies will not be visualized mammographically. In the management of a palpable breast mass, a negative mammogram must not discourage biopsy of a clinically suspicious lesion. Electronically Signed By: Efren muñoz/suman:02/27/2021 12:36:21 letter sent: Normal Exam ACR BI-RADS Category 2: Benign Finding(s) 3342F
== END ==
PROVIDERS: PCP Student in an Organized Health Care Education/Training Program; Referring Provider Student in an Organized Health Care Education/Training Program; Visit Provider Student in an Organized Health Care Education/Training Program
DX: Z12.31 Encounter for screening mammogram for malignant neoplasm of breast (principal); Z80.3 Family history of malignant neoplasm of breast
CPT/HCPCS: 77063; 77067

== ENCOUNTER → 2021-04-15 10:18 | Outpatient (CLI) | payer OTHER, SELFPAY ==
[2021-04-15 13:11] LABS: COVID19 -Nasal RAPID Negative (Negative)
== END ==
PROVIDERS: PCP Student in an Organized Health Care Education/Training Program; Visit Provider Nurse Practitioner
DX: Z20.822 Contact with and (suspected) exposure to COVID-19 (principal); Z01.812 Encounter for preprocedural laboratory examination
CPT/HCPCS: 87635; C9803

== ENCOUNTER → 2021-08-10 15:21 | Outpatient (CLI) | payer OTHER, SELFPAY ==
[2021-08-10 16:47] LABS: BUN Creatinine Ratio 20.8 (6-22); Blood Urea Nitrogen 16 mg/dL (7-17); Cholesterol 155 mg/dL (140-199); Estimated Glomerular Filt Rate > 60.0 mL/min (>60); HDL Cholesterol 61 mg/dL (40-60); LDL Cholesterol Calculated 72 mg/dL (<100); Triglycerides 108 mg/dL (35-150)
[2021-08-10 16:51] LABS: Hemoglobin A1C% w Est Avg Glu 5.8 % (4.0-6.0)
[2021-08-10 17:53] LABS: Creatinine Urine Random 79.7 mg/dL
[2021-08-10 17:57] LABS: Microalbumi Creatinin Ratio Ur 66.4 ug/mg CR (<30); Microalbumin Urine Random 5.3 mg/dL (0-1.6)
== END ==
PROVIDERS: PCP Student in an Organized Health Care Education/Training Program; Referring Provider Student in an Organized Health Care Education/Training Program; Visit Provider Student in an Organized Health Care Education/Training Program
DX: E11.29 Type 2 diabetes mellitus with other diabetic kidney complication (principal); R80.9 Proteinuria, unspecified
CPT/HCPCS: 36415; 80061; 82043; 82565; 82570; 83036; 84520

== ENCOUNTER → 2022-03-19 14:26 | Outpatient (CLI) | payer OTHER, SELFPAY ==
[2022-03-19 15:05] LABS: Blood Urea Nitrogen 16 mg/dL (7-17); Estimated Glomerular Filt Rate > 60 mL/min (>60)
[2022-03-19 15:07] LABS: Hemoglobin A1C% w Est Avg Glu 5.9 % (4.0-6.0)
== END ==
PROVIDERS: PCP Student in an Organized Health Care Education/Training Program; Referring Provider Student in an Organized Health Care Education/Training Program; Visit Provider Student in an Organized Health Care Education/Training Program
DX: E11.29 Type 2 diabetes mellitus with other diabetic kidney complication (principal); R80.9 Proteinuria, unspecified
CPT/HCPCS: 36415; 82565; 83036; 84520

== ENCOUNTER → 2022-03-26 11:24 | Outpatient (CLI) | payer OTHER, SELFPAY ==
--- NOTE | 2022-03-26 | DI.MG.S_ITS ---
BILATERAL DIGITAL SCREENING MAMMOGRAM 3D/2D WITH CAD: 03/26/2022 CLINICAL: Routine screening. Family history of breast cancer. Comparison is made to exams dated: 02/27/2021 mammogram, 01/30/2020 mammogram, and 12/18/2018 mammogram - [facility]. The tissue of both breasts is predominantly fatty. Current study was also evaluated with a Computer Aided Detection (CAD) system. There are benign calcifications in both breasts. No significant masses, calcifications, or other findings are seen in either breast. There has been no significant interval change. IMPRESSION: BENIGN There is no mammographic evidence of malignancy. A 1 year screening mammogram is recommended. Based on the Tyrer Cuzick model (a risk assessment model) the patient's lifetime risk is % and her 10 year risk is %. According to the ACR, ACS, and NCCN guidelines, an annual breast MRI exam along with mammogram is recommended if the patient's lifetime risk is 20% or greater. This exam was interpreted at Station ID: [id number]. NOTE: For mammograms, a report in lay terms will be sent to the patient. Approximately 15% of breast malignancies will not be visualized mammographically. In the management of a palpable breast mass, a negative mammogram must not discourage biopsy of a clinically suspicious lesion. Electronically Signed By: Meliza dalton/suman:03/26/2022 16:29:57 letter sent: Normal Exam ACR BI-RADS Category 2: Benign Finding(s) 3342F
== END ==
PROVIDERS: PCP Student in an Organized Health Care Education/Training Program; Referring Provider Student in an Organized Health Care Education/Training Program; Visit Provider Student in an Organized Health Care Education/Training Program
DX: Z12.31 Encounter for screening mammogram for malignant neoplasm of breast (principal); Z80.3 Family history of malignant neoplasm of breast
CPT/HCPCS: 77063; 77067

== ENCOUNTER → 2022-05-13 09:24 | Outpatient (CLI) | payer OTHER, SELFPAY ==
--- NOTE | 2022-05-13 10:17 | DIAB.MNT ---
Initial Diabetes Medical Nutrition Therapy Assessment Name: Elaina Gonzalez Date: 05/13/22 Time: [id number] Dx: Type II Diabetes Provider: Rachael Elaina presents for initial visit. States she completed DM classes when diagnosed 13 years ago. Interested in a refresher. Elaina's HgA1c is excellent and BG reading all in goal. She is eating q 3-4 hours, balanced with macronutrients. Tries to incorporate fruits and veggies, may be low in veggies some days. Eats out 2-3 x per week. PMH macular degeneration which impacts her eyesight significantly. Seems genetic versus DM related. Mother and two daughters with MD. Often worries if her BG are negatively impacting her eyesight. Has dentures, no dental visit in 50 years. Diet Recall: 8-9a: ww toast with PB, coffee, 1TBS creamer and 1/4c OJ 12-1p: half of a sandwich or leftovers from eating out 3-4p: 7 PB pretzels or handful of nuts 6p: half of sandwich with half apple or salad with pro or Eliel or burger or hot dog sn: nothing or slices of apple, pb pretzels x 3 with meds Anthropometrics: Ht: 63 Wt: 170# Physical Activity: Walking and gardening. More walking when visiting family in [place]. No safe walking paths near her home. States she stays very busy. Considering walking to the end of her property and back for exercise. Self-Monitoring Blood Glucose: All in goal. Checks twice per week. All FBG 92-111 mg/dl and 2 hour pc 97-113 mg/dl Diabetes Medications: 500 mg Metformin in the morning Pertinent Labs: All hgA1c from 2016 to now between 5.6-5.9%. Most recent lab 5.9% 02/2022 Past Medical History: (Last Updated 03/23/22 @ 09:46 by Billy Cano MD) Allergic rhinitis Ankle pain (~1989) BCC (basal cell carcinoma of skin) (2012) Cataract (2011) Chicken pox (~1940) Chronic back pain (~1989) Chronic cough (2013) Chronic headaches Always Depression (2000) Distal radius fracture, right (10/09/17) Fibromyalgia (~1989) Foot pain (2000) Fractures (2006) Gout (2000) History of vaginal delivery x7 Hypertension Macular degeneration (2010) Measles (~1940) Mumps (~1940) Osteoarthritis (2013) Partial blindness (2010) Type II diabetes mellitus Nutrition Rx: Plate Method Nutrition Diagnosis: - Physical inactivity r/t limited safe walking space aeb pt report Intervention: This participant was very receptive. Provided appropriate educational handouts. Discussed the following topics: HgA1c hx and recs SMBG goals ADA vs AACE Pairing macros and continuing good meal timing BG and eye health Physical activity plan and barriers Created SMART goals for patient self-care and success. Goals: Try walking to end of property Eat vegetables 2x per day Follow-up: RAÚL ALVARADO follow-up prn. Today Elaina and I discussed how well she is doing with diet and diabetes management. She was offered classes at the end of our discussion. She does not seem to need classes, but if she was still wanting to take them this is available to her. She declined. Encouraged her to call for any questions or follow-up needs. She agreed. Pascale Lema RDN, [facility] Certified Diabetes Care and [employer] Caller P: [phone] Thank you for this referral
== END ==
PROVIDERS: PCP Student in an Organized Health Care Education/Training Program; Referring Provider Student in an Organized Health Care Education/Training Program; Visit Provider Student in an Organized Health Care Education/Training Program
DX: E11.9 Type 2 diabetes mellitus without complications (principal); Z71.3 Dietary counseling and surveillance; Z79.84 Long term (current) use of oral hypoglycemic drugs
CPT/HCPCS: 97802

== ENCOUNTER → 2022-10-07 10:54 | Outpatient (CLI) | payer OTHER, SELFPAY ==
[2022-10-07 12:00] LABS: Hemoglobin A1C% w Est Avg Glu 5.9 % (4.0-6.0)
[2022-10-07 12:07] LABS: BUN Creatinine Ratio 23.9 (6-22); Blood Urea Nitrogen 17 mg/dL (7-17); Calcium 9.4 mg/dL (8.4-10.2); Carbon Dioxide 32 mmol/L (22-32); Chloride 101 mmol/L (98-107); Cholesterol 142 mg/dL (140-199); Estimated Glomerular Filt Rate > 60 mL/min (>60); Glucose 81 mg/dL (80-110); HDL Cholesterol 60 mg/dL (40-60); HEMOLYSIS < 15 (0-50); LDL Cholesterol Calculated 63 mg/dL (<100); Sodium 139 mmol/L (137-145); Triglycerides 94 mg/dL (35-150)
[2022-10-07 12:30] LABS: Creatinine Urine Random 326.6 mg/dL
[2022-10-07 12:33] LABS: Microalbumi Creatinin Ratio Ur 31.2 ug/mg CR (<30); Microalbumin Urine Random 10.2 mg/dL (0-1.6)
== END ==
PROVIDERS: PCP Student in an Organized Health Care Education/Training Program; Referring Provider Student in an Organized Health Care Education/Training Program; Visit Provider Student in an Organized Health Care Education/Training Program
DX: E11.29 Type 2 diabetes mellitus with other diabetic kidney complication (principal); E78.5 Hyperlipidemia, unspecified; E78.2 Mixed hyperlipidemia; R80.9 Proteinuria, unspecified
CPT/HCPCS: 36415; 80048; 80061; 82043; 82570; 83036

== ENCOUNTER → 2023-04-21 12:30 | Outpatient (CLI) | payer OTHER, SELFPAY ==
--- NOTE | 2023-04-21 | DI.MG.S_ITS ---
BILATERAL DIGITAL SCREENING MAMMOGRAM 3D/2D WITH CAD: 04/21/2023 CLINICAL: Routine screening. Family history of breast cancer. Comparison is made to exams dated: 03/26/2022 mammogram, 02/27/2021 mammogram, 01/30/2020 mammogram, and 12/18/2018 mammogram - [facility]. There are scattered areas of fibroglandular density in both breasts (category b / 25%-50% glandular tissue). Current study was also evaluated with a Computer Aided Detection (CAD) system. There are benign calcifications in both breasts. No significant masses, calcifications, or other findings are seen in either breast. There has been no significant interval change. IMPRESSION: BENIGN There is no mammographic evidence of malignancy. A 1 year screening mammogram is recommended. This exam was interpreted at Station ID: [id number]. NOTE: For mammograms, a report in lay terms will be sent to the patient. Approximately 15% of breast malignancies will not be visualized mammographically. In the management of a palpable breast mass, a negative mammogram must not discourage biopsy of a clinically suspicious lesion. Electronically Signed By: José cuellar/suman:04/21/2023 17:19:35 letter sent: Normal Exam ACR BI-RADS Category 2: Benign Finding(s) [id number]
== END ==
PROVIDERS: PCP Family Medicine; Referring Provider Family Medicine; Visit Provider Family Medicine
DX: Z12.31 Encounter for screening mammogram for malignant neoplasm of breast (principal); Z80.3 Family history of malignant neoplasm of breast
CPT/HCPCS: 77063; 77067

== ENCOUNTER → 2023-05-11 10:45 | Outpatient (CLI) | payer OTHER, SELFPAY ==
[2023-05-11 12:26] LABS: Creatinine Urine Random 126.3 mg/dL
[2023-05-11 12:30] LABS: Microalbumi Creatinin Ratio Ur 36.4 ug/mg CR (<30); Microalbumin Urine Random 4.6 mg/dL (0-1.6)
== END ==
PROVIDERS: PCP Family Medicine; Referring Provider Family Medicine; Visit Provider Family Medicine
DX: E11.29 Type 2 diabetes mellitus with other diabetic kidney complication; R80.9 Proteinuria, unspecified
CPT/HCPCS: 82043; 82570

== ENCOUNTER → 2023-05-17 10:45 | Outpatient (CLI) | payer OTHER, SELFPAY | PROVIDERS: PCP Family Medicine; Visit Provider Family Medicine | DX: R10.9 Unspecified abdominal pain (principal); R39.15 Urgency of urination; R30.0 Dysuria | CPT/HCPCS: 87086 ==

== ENCOUNTER → 2023-09-06 13:29 | Outpatient (CLI) | payer OTHER, SELFPAY | PROVIDERS: PCP Family Medicine; Referring Provider Family Medicine; Visit Provider Family Medicine | DX: E11.9 Type 2 diabetes mellitus without complications (principal) | CPT/HCPCS: 36415; 83036 ==

== ENCOUNTER 2023-10-25 13:37 | Emergency (ER) | payer OTHER, SELFPAY ==
[2023-10-25 13:40] VITALS: BP 164/77; PULSE 70; RESP 18; TEMP 36.7; O2SAT 98; BMI 30.1
--- NOTE | 2023-10-25 13:47 | DI.US.S_ITS ---
PROCEDURE: US PERIPH VENOUS LOW EXTREM LT INDICATIONS: SWELLING/HEAVINESS TECHNIQUE: Real-time imaging, as well as color and pulse Doppler interrogation, were performed of the lower extremity deep veins from the inguinal ligament to the popliteal fossa, with documentation of the visualized calf veins. COMPARISON: None. FINDINGS: The common femoral, femoral, popliteal, and the visualized calf veins are normally compressible, and free of intraluminal thrombus. Color and pulse Doppler demonstrate normal phasic intraluminal flow. There is normal augmentation response to distal compression maneuver. Mild ankle soft tissue edema can be seen. Additional, dedicated ultrasound scanning is performed at the area of palpable ankle abnormality. No focal ultrasound abnormalities are seen within this region. IMPRESSION: No findings of lower extremity deep venous thrombosis. Dictated by: Grey Curran M.D. on 10/25/2023 at 13:47 Approved by: Grey Curran M.D. on 10/25/2023 at 13:48
--- NOTE | 2023-10-25 13:51 | DI.RAD.S_ITS ---
PROCEDURE: XR CHEST 2V INDICATIONS: short of breath episode TECHNIQUE: 2 views of the chest were acquired. COMPARISON: None. FINDINGS: Surgical changes and devices: None. Lungs and pleura: Moderate diffuse reticulonodular pulmonary opacity. No pleural effusions or pneumothorax. Mediastinum: Mediastinal contours are normal. Heart size is normal. Bones and chest wall: No suspicious bony abnormalities. Soft tissues appear unremarkable. IMPRESSION: Moderate atypical pneumonia. Dictated by: Tomas Morales M.D. on 10/25/2023 at 14:45 Approved by: Tomas Morales M.D. on 10/25/2023 at 14:45
--- NOTE | 2023-10-25 15:27 | ED_ITS ---
HPI - Extremity Problem <Valerie Jeffers PA-C - Last Filed: 10/25/23 15:39> General Chief complaint: Extremity Problem,Nontraumatic Stated complaint: sob, L leg swelling/lump, upper back pain/headache Time Seen by Provider: 10/25/23 14:24 Source: patient Mode of arrival: Ambulatory History of Present Illness HPI Narrative: Patient is an 88-year-old female with a history of diabetes, hypertension and hyperlipidemia who presents with concern for a lump in her left lower leg for several days and an episode of acute onset of shortness of breath this morning. She was tidying her kitchen this morning when she suddenly became short of breath and had to sit down and focus on her breathing. It was not associated with chest pain or strenuous activity. She denies recent cough or sore throat but endorses a runny nose for several months. No recent fever, unintentional weight loss or night sweats. Patient has no history of smoking although her late did smoke indoors for many years. Patient also reports an episode of upper mid back pain several days ago. She says at the time it occurred to her am I having a heart attack?, but the pain went away. It has not recurred. The swelling in her left lower leg was noted several days ago. She reports there was a firm area as heard as a baseball but has since mostly resolved. The area was not red or warm. No history of DVT or PE. She is accompanied by her daughter. She does not drive due to partial blindness. Related Data Home Medications Medication Instructions Recorded Confirmed Fish Oil 1,200 mg PO DAILY ##0 02/27/13 08/16/23 cholecalciferol (vitamin D3) 25 1,000 units PO DAILY ##0 02/27/13 08/16/23 mcg (1,000 unit) capsule (Vitamin D3) vitamins A,C,M-dkka-[id number] 4,296 1 cap PO BID 10/23/18 08/16/23 mcg-226 mg-90 mg capsule (PreserVision AREDS) aspirin 81 mg tablet,delayed 81 mg PO DAILY 02/28/19 08/16/23 release (Adult Low Dose Aspirin) Previous Rx's Medication Instructions Recorded fluticasone propionate 50 2 spray intranasal DAILY #9.9 grams 03/23/22 mcg/actuation nasal spray,suspension escitalopram oxalate 10 mg tablet See Rx Instructions .Route 02/10/23 .COMPLEX #90 tabs gabapentin 300 mg capsule See Rx Instructions .Route 02/10/23 .COMPLEX #90 caps losartan 25 mg tablet See Rx Instructions .Route 02/10/23 .COMPLEX #90 tabs omeprazole 20 mg capsule,delayed See Rx Instructions .Route 02/10/23 release .COMPLEX #90 caps oxybutynin chloride 5 mg tablet See Rx Instructions .Route 02/10/23 .COMPLEX #90 tabs simvastatin 20 mg tablet See Rx Instructions .Route 02/10/23 .COMPLEX #90 tabs trazodone 50 mg tablet See Rx Instructions .Route 02/10/23 .COMPLEX #90 tabs lancets 33 gauge #300 ea 05/08/23 metformin 500 mg tablet 500 mg PO DAILY #90 tabs 05/09/23 cetirizine 10 mg tablet (Zyrtec) 10 mg PO DAILY PRN allergy 05/17/23 symptoms #90 tabs estradiol 0.01% (0.1 mg/gram) 0.5 appful vaginal DAILY #42.5 05/17/23 vaginal cream grams clobetasol 0.05 % topical ointment 1 applic topical BID 6 weeks #60 06/23/23 grams one touch verio test strips #300 ea 09/02/23 amoxicillin 500 mg tablet 1,000 mg (2 x 500 mg) PO TID 10/25/23 atypical pneumonia 5 days #30 tabs azithromycin 250 mg tablet See Rx Instructions PO .COMPLEX #6 10/25/23 tabs Allergies Allergy/AdvReac Type Severity Reaction Status Date / Time No Known Drug Allergies Allergy Verified 10/25/23 13:40 Review of Systems <Valerie Jeffers PA-C - Last Filed: 10/25/23 15:39> Review of Systems ROS Unobtainable: All systems reviewed & are unremarkable except as noted in HPI and below Patient History <Valerie Jeffers PA-C - Last Filed: 10/25/23 15:39> Medical History Allergic rhinitis Type II diabetes mellitus Distal radius fracture, right (10/09/17) Macular degeneration (2010) Partial blindness (2010) BCC (basal cell carcinoma of skin) (2012) Ankle pain (~1989) Chronic back pain (~1989) Fibromyalgia (~1989) Foot pain (2000) Fractures (2006) Gout (2000) Chronic cough (2013) Cataract (2011) Chicken pox (~1940) Measles (~1940) Mumps (~1940) Chronic headaches Depression (2000) Osteoarthritis (2013) Hypertension History of vaginal delivery Surgical History History of open reduction and internal fixation (ORIF) procedure (10/18/17) History of colonoscopy (12/18/09) Anesthesia Status post hemorrhoidectomy History of knee replacement (05/20/14) History of knee replacement (08/27/13) Status post discectomy (2001) Status post cholecystectomy (1986) Family History Brother Heart disease Hypertension Diabetes mellitus Sister Age: 77 Overweight Brother Cancer Hodgkin's disease Father Broken hip Mother Gallbladder disease Sister History of heart artery stent Grandfather No problems noted. Grandmother No problems noted. Grandfather No problems noted. Grandmother No problems noted. Social History Smoking Status: Never smoker alcohol intake: current substance use type: does not use Smoking Status: Never smoker alcohol intake frequency: a few times a month Substance Use Type: does not use Exam <Valerie Jeffers PA-C - Last Filed: 10/25/23 15:39> Narrative Exam Narrative: GENERAL: 88 year old patient appears stated age. Well-developed patient, in no acute distress. NEURO: AOx3. HEAD: Atraumatic. Normocephalic. EYES: Pupils equal round and reactive. Extraocular motions intact. No scleral icterus. No injection or drainage. ENT: Nose without bleeding or purulent drainage. Airway patent. CARDIOVASCULAR: Regular rate and rhythm without murmurs, gallops, or rubs. RESPIRATORY: Diminished in the bilateral bases. Breath sounds equal bilaterally. No wheezes, rales, or rhonchi. EXTREMITIES: Trace edema of the left lower extremity. 2+ DP pulse No erythema or warmth over the area of concern. No calf tenderness, calf is supple. SKIN: No rash or erythema of visible areas Initial Vital Signs Initial Vital Signs: Vital Signs Temperature 98.1 F 10/25/23 13:40 Pulse Rate 70 10/25/23 13:40 Respiratory Rate 18 10/25/23 13:40 Blood Pressure 164/77 H 10/25/23 13:40 Pulse Oximetry 98 10/25/23 13:40 Oxygen Delivery Method Room Air 10/25/23 13:40 <Uzma Julio MD - Last Filed: 10/26/23 12:43> Initial Vital Signs Initial Vital Signs: Vital Signs Temperature 98.1 F 10/25/23 13:40 Pulse Rate 70 10/25/23 13:40 Respiratory Rate 18 10/25/23 13:40 Blood Pressure 164/77 H 10/25/23 13:40 Pulse Oximetry 98 10/25/23 13:40 Oxygen Delivery Method Room Air 10/25/23 13:40 Scores <Valerie Jeffers PA-C - Last Filed: 10/25/23 15:39> Wells' Criteria for PE Clinical signs and symptoms of DVT: No PE is #1 Dx or equally likely: No Heart rate > 100: No Immobilization at least 3 days or surg in previous 4 weeks: No History of PE or DVT: No Hemoptysis: No Malignancy w/Treatment within 6 months or palliative: No Wells' PE Score total: 0 <Uzma Julio MD - Last Filed: 10/26/23 12:43> Wells' Criteria for PE Wells' PE Score total: 0 Course <Valerie Jeffers PA-C - Last Filed: 10/25/23 15:39> Orders Ordered: ED Orders 10/25/23 13:47 US periph venous low extrem lt Stat 10/25/23 13:51 XR chest 2V Stat Vital Signs Vital signs: Vital Signs - 8 hr 10/25/23 13:40 Temperature 98.1 F Pulse Rate 70 Respiratory Rate 18 Blood Pressure 164/77 H Pulse Oximetry 98 Oxygen Delivery Method Room Air <Uzma Julio MD - Last Filed: 10/26/23 12:43> Orders Ordered: ED Orders 10/25/23 13:47 US periph venous low extrem lt Stat 10/25/23 13:51 XR chest 2V Stat Vital Signs Vital signs: Vital Signs - 8 hr 10/25/23 13:40 Temperature 98.1 F Pulse Rate 70 Respiratory Rate 18 Blood Pressure 164/77 H Pulse Oximetry 98 Oxygen Delivery Method Room Air MDM - Extremity (Nontraumatic) <Valerie Jeffers PA-C - Last Filed: 10/25/23 15:39> Imaging Data US - DVT: Radiologist's Impression: PROCEDURE: US PERIPH VENOUS LOW EXTREM LT INDICATIONS: SWELLING/HEAVINESS TECHNIQUE: Real-time imaging, as well as color and pulse Doppler interrogation, were performed of the lower extremity deep veins from the inguinal ligament to the popliteal fossa, with documentation of the visualized calf veins. COMPARISON: None. FINDINGS: The common femoral, femoral, popliteal, and the visualized calf veins are normally compressible, and free of intraluminal thrombus. Color and pulse Doppler demonstrate normal phasic intraluminal flow. There is normal augmentation response to distal compression maneuver. Mild ankle soft tissue edema can be seen. Additional, dedicated ultrasound scanning is performed at the area of palpable ankle abnormality. No focal ultrasound abnormalities are seen within this region. IMPRESSION: No findings of lower extremity deep venous thrombosis. Dictated by: Grey Curran M.D. on 10/25/2023 at 13:47 Approved by: Grey Curran M.D. on 10/25/2023 at 13:48 Chest x-ray: Radiologist's Impression: PROCEDURE: XR CHEST 2V INDICATIONS: short of breath episode TECHNIQUE: 2 views of the chest were acquired. COMPARISON: None. FINDINGS: Surgical changes and devices: None. Lungs and pleura: Moderate diffuse reticulonodular pulmonary opacity. No pleural effusions or pneumothorax. Mediastinum: Mediastinal contours are normal. Heart size is normal. Bones and chest wall: No suspicious bony abnormalities. Soft tissues appear unremarkable. IMPRESSION: Moderate atypical pneumonia. Dictated by: Tomas Morales M.D. on 10/25/2023 at 14:45 Approved by: Tomas Morales M.D. on 10/25/2023 at 14:45 [facility] Narrative Medical decision making narrative: Multiple etiologies for patient's symptoms considered including, but not limited to: PE, DVT, cellulitis of the leg, DE, pneumonia Patient has normal vital signs. Lower extremity DVT study is negative for deep venous thrombosis. Her exam is reassuring; there is no evidence of cellulitis, abscess or other pathology of the lower extremity. There is trace edema. Pulmonary exam with diminished bilateral lung sounds, no crackles or rhonchi noted. Chest x-ray notable for atypical pneumonia with early infiltrate in the right upper lobe. Suspect this is the source of her mid upper back pain and acute shortness of breath. Calcified aorta noted. Discussed case with Dr. Julio. PE considered; Wells score for PE is 0. Patient has no history of blood clot, no recent immobility or other risk factors. Discussed plan of care with the patient and her daughter. Will start treatment of atypical pneumonia with amoxicillin and azithromycin. Given incentive spirometer and teaching by RT in the emergency room for prevention of atelectasis. Follow up with PCP Dr. Cadena if not improved after antibiotics. Strict return precautions advised. Patient's symptoms improved over duration of stay with above-stated therapies. Findings and discharge diagnosis discussed with patient/family followed by verbalization of understanding Return precautions discussed with patient/family whom verbalize understanding of diagnosis and plan Discharge Plan Departure Patient Disposition: Home Clinical Impression: Atypical pneumonia Instructions: DI for Atypical Pneumonia Activity Restrictions/Additional Instructions: *You have been diagnosed with atypical pneumonia. It is very important to take the antibiotics I have prescribed and take all of them, even if you are feeling better. The course is 5 days long. I would also suggest using the incentive spirometer which is a device to help you take deep breaths. Please take deep breaths throughout the day. This helps expand the small air sacs of your lungs and prevent further infection. Drink plenty of water and rest. If you are not feeling better after completing the antibiotics, please follow up with your primary care for reassessment. There is no evidence of blood clot on your ultrasound today. *What to do: *Please continue to take your regular medications as directed. [x] New medication prescriptions sent to your pharmacy: [facility] [ ] New medication written as a paper prescription [ ] No new medications given *Please follow up with your primary care provider in 2-3 days, call for an appointment. Let them know you were seen in the Emergency Department and that we ask that you be seen in follow up. We will electronically transmit a record of today's note if your PCP is in our system *If you do not have a primary care provider please contact the [facility] Resource line at [phone]. They will ask some questions about your medical history and help get you set up with a doctor in the community. *Return to Emergency Department if you should have any new, worsening or conc erning symptoms, such as [fever greater than 101 F, shaking chills, worsening pain, persistent vomiting or other concerning symptoms]. Prescriptions: New azithromycin 250 mg tablet See Rx Instructions .ROUTE .COMPLEX Qty: 6 0RF Rx Instructions: For 250 mg dose pack: take 500 mg today (day 1), then 250 mg for 4 days (days 2-5) amoxicillin 500 mg tablet 1,000 mg PO TID 5 Days Qty: 30 0RF No Action Fish Oil 1,200 mg PO DAILY Qty: 0 cholecalciferol (vitamin D3) [Vitamin D3] 1,000 unit Capsule 1,000 units PO DAILY Qty: 0 gabapentin 300 mg capsule See Rx Instructions .ROUTE .COMPLEX Qty: 90 3RF Dose Instruction: TAKE 1 CAPSULE BY MOUTH AT BEDTIME Rx Instructions: TAKE 1 CAPSULE BY MOUTH AT BEDTIME escitalopram oxalate 10 mg tablet See Rx Instructions .ROUTE .COMPLEX Qty: 90 3RF Dose Instruction: TAKE 1 TABLET BY MOUTH EVERY DAY Rx Instructions: TAKE 1 TABLET BY MOUTH EVERY DAY oxybutynin chloride 5 mg tablet See Rx Instructions .ROUTE .COMPLEX Qty: 90 3RF Dose Instruction: TAKE 1 TABLET BY MOUTH EVERY DAY Rx Instructions: TAKE 1 TABLET BY MOUTH EVERY DAY omeprazole 20 mg capsule,delayed release(DR/EC) See Rx Instructions .ROUTE .COMPLEX Qty: 90 3RF Dose Instruction: TAKE 1 CAPSULE BY MOUTH EVERY DAY Rx Instructions: TAKE 1 CAPSULE BY MOUTH EVERY DAY losartan 25 mg tablet See Rx Instructions .ROUTE .COMPLEX Qty: 90 3RF Hold Instructions: needs labs Dose Instruction: TAKE 1 TABLET BY MOUTH EVERY DAY Rx Instructions: TAKE 1 TABLET BY MOUTH EVERY DAY simvastatin 20 mg tablet See Rx Instructions .ROUTE .COMPLEX Qty: 90 3RF Hold Instructions: Needs labs Dose Instruction: TAKE 1 TABLET BY MOUTH EVERY DAY Rx Instructions: TAKE 1 TABLET BY MOUTH EVERY DAY trazodone 50 mg tablet See Rx Instructions .ROUTE .COMPLEX Qty: 90 3RF Dose Instruction: TAKE 1 TABLET BY MOUTH AT BEDTIME Rx Instructions: TAKE 1 TABLET BY MOUTH AT BEDTIME (DME) lancets 33 gauge misc See Dose Instructions .ROUTE .MEDSUPPLY Qty: 300 6RF Dose Instruction: As directed Rx Instructions: use to check blood sugars 2 to 3 times daily as directed metformin 500 mg tablet 500 mg PO DAILY Qty: 90 3RF Hold Instructions: Needs labs (DME) one touch verio test strips Qty: 300 1RF Rx Instructions: use to test blood sugar 2-3 times daily PreserVision AREDS [id number] quoj-ou-vrax capsule 1 cap PO BID fluticasone propionate 50 mcg/actuation spray,suspension 2 spray NASAL DAILY Qty: 9.9 11RF Rx Instructions: administer into each nostril estradiol 0.01 % (0.1 mg/gram) cream 0.5 appful vaginal DAILY Qty: 42.5 11RF Rx Instructions: for 7 days. then 0.25 appful twice/week cetirizine [Zyrtec] 10 mg tablet 10 mg PO DAILY PRN (Reason: allergy symptoms) Qty: 90 3RF clobetasol 0.05 % ointment 1 applic topical BID 42 Days Qty: 60 2RF aspirin [Adult Low Dose Aspirin] 81 mg tablet,delayed release (DR/EC) 81 mg PO DAILY Hold Instructions: Home Medication placed on hold at Doctor's office Referrals: Parvez Quinones DO [Primary Care Provider] - Stand Alone Forms: Patient Portal/API ED Sign-out <Uzma Julio MD - Last Filed: 10/26/23 12:43> Cosign ED Attending Cosignature Attestation: I was immediately available in the department for consultation throughout this patient's visit. Uzma Julio MD
--- NOTE | 2023-10-25 15:39 | PC.NURSE ---
RT in room for incentive spirometry teaching
== END 2023-10-25 15:39 | disposition home or self-care (01) ==
PROVIDERS: Emergency Provider Physician Assistant; PCP Family Medicine
DX: J18.9 Pneumonia, unspecified organism (principal); R22.42 Localized swelling, mass and lump, left lower limb
CPT/HCPCS: 71046; 93971; 99283

== ENCOUNTER → 2024-04-17 13:29 | Outpatient (CLI) | payer OTHER, SELFPAY ==
--- NOTE | 2024-04-17 13:30 | DI.ECHO.S_ITS ---
[facility] : : [id number] : : [place] : : [id number] : : Phone: [phone] Echocardiogram Report + + :Name: LETICIA MARTEL Study Date: 04/17/2024 Height: 63 in : :[facility] ReadingLocation: Weight: 169 lb : : Gender: Female BSA: 1.8 m2 : :: 1935 Age: 88 yrs BP: 172/88 mmHg: :Reason For Study: DYPSNEA : :Ordering Physician: ENOC, : :EZE Performed By: James Marte : :Referring: EZE STUBBS : + + Interpretation Summary 1) Normal left ventricular thickness, size, wall motion, and systolic function (EF 60-65%). 2) Normal right ventricular size and function. 3) No significant valvular abnormalities. 4) No prior Echo available for comparison. Procedure: A two-dimensional transthoracic echocardiogram with color flow and Doppler was performed. The study quality was technically adequate. There is no prior echocardiogram noted for this patient. The heart rate ranged between 76-90 bpm during the study. Left Ventricle: The left ventricle is normal in size and wall thickness. The ejection fraction is estimated to be 60-65%. Left ventricular systolic function appears normal without focal wall motion abnormalities. Diastolic parameters suggest a relaxation abnormality of the left ventricle, consistent with probable normal filling pressures. Right Ventricle: The right ventricle is normal size. The right ventricular systolic function is normal. Atria: The left atrial size is normal. Right atrial size is normal. The interatrial septum grossly appears intact with no obvious evidence for an atrial septal defect. Mitral Valve: The mitral valve is normal. There is no mitral valve stenosis. There is trace mitral regurgitation. Aortic Valve: The aortic valve is trileaflet. There is no aortic valve stenosis. No aortic regurgitation is present. Tricuspid Valve: The tricuspid valve is normal. There is no tricuspid stenosis. There is trace tricuspid regurgitation. Pulmonic Valve: The pulmonic valve is not well visualized. There is no pulmonic valvular stenosis. There is no pulmonic valvular regurgitation. Great Vessels: The aortic root is normal size. The ascending aorta could not be visualized. The IVC is of normal diameter and collapses greater than 50% with a sniff. This suggests a low right atrial pressure of 3 mm Hg. Pericardium/ Pleura There is no pericardial effusion. There is no pleural effusion. MMode/2D Measurements & Calculations LVIDd: 4.6 cm LVOT diam: 2.1 cm LVIDs: 3.5 cm Ao root diam: 3.4 cm FS: 24.7 % asc Aorta Diam: 3.4 cm IVSd: 0.97 cm LVPWd: 0.99 cm LV donnelly. diameter/BSA (cm/m^2): 2.6 LV sys. diameter/BSA (cm/m^2): 1.9 LA A2 area: 20.4 cm2 RA long axis: 5.2 cm LA A4 area: 21.4 cm2 RA area: 14.1 cm2 LA length (vol): 5.9 cm RA vol: 32.4 ml LA vol: 62.5 ml RA : 18.0 ml/m2 LA vol index: 34.7 ml/m2 IVC diam: 1.1 cm RVD1 (basal): 3.9 cm RVD2 (mid): 3.2 cm TAPSE: 1.9 cm Doppler Measurements & Calculations Ao V2 max: 129.8 cm/sec LVOT Max Godwin: 107.3 cm/sec Ao V2 mean: 102.1 cm/sec LV V1 max P.6 mmHg Ao max P.7 mmHg LV V1 VTI: 23.3 cm Ao mean P.4 mmHg VAN(I,D): 2.9 cm2 Ao V2 VTI: 28.4 cm VAN(V,D): 2.9 cm2 sev ratio: 0.82 VAN indexed to BSA (cm^2/m^2): 1.6 MV E max godwin: 69.7 cm/sec PA V2 max: 124.9 cm/sec MV A max godwin: 86.9 cm/sec PA V2 mean: 82.6 cm/sec MV E/A: 0.80 PA mean P.1 mmHg Med Peak E' Godwin: 4.9 cm/sec PA pr(Accel): 58.4 mmHg E/E' med: 14.3 Lat Peak E' Godwin: 5.7 cm/sec E/E' lat: 12.2 E/e' average: 13.3 MV dec time: 0.25 sec SV(LVOT): 81.1 ml Reading Physician:03:02 PM
== END ==
LOC: ECHO 13:30
PROVIDERS: PCP Family Medicine; Referring Provider Family Medicine; Visit Provider Family Medicine
DX: R06.09 Other forms of dyspnea (principal); I10 Essential (primary) hypertension
CPT/HCPCS: 93306

== ENCOUNTER → 2024-04-23 11:17 | Outpatient (CLI) | payer OTHER, SELFPAY ==
--- NOTE | 2024-04-23 | DI.MG.S_ITS ---
BILATERAL DIGITAL SCREENING MAMMOGRAM 3D/2D WITH CAD: 04/23/2024 CLINICAL: Routine screening. Family history of breast cancer. Comparison is made to exams dated: 04/21/2023 mammogram, 03/26/2022 mammogram, and 02/27/2021 mammogram - [facility]. There are scattered areas of fibroglandular density in both breasts (category b / 25%-50% glandular tissue). Current study was also evaluated with a Computer Aided Detection (CAD) system. There are benign calcifications in both breasts. No significant masses, calcifications, or other findings are seen in either breast. There has been no significant interval change. IMPRESSION: BENIGN There is no mammographic evidence of malignancy. A 1 year screening mammogram is recommended. This exam was interpreted at Station ID: [id number]. NOTE: For mammograms, a report in lay terms will be sent to the patient. Approximately 15% of breast malignancies will not be visualized mammographically. In the management of a palpable breast mass, a negative mammogram must not discourage biopsy of a clinically suspicious lesion. Electronically Signed By: Abdirashid alvarado/suman:04/23/2024 12:34:50 letter sent: Normal Exam ACR BI-RADS Category 2: Benign Finding(s) 3342F
== END ==
PROVIDERS: PCP Family Medicine; Referring Provider Family Medicine; Visit Provider Family Medicine
DX: Z12.31 Encounter for screening mammogram for malignant neoplasm of breast (principal); Z80.3 Family history of malignant neoplasm of breast; R92.323 Mammographic fibroglandular density, bilateral breasts
CPT/HCPCS: 77063; 77067

== ENCOUNTER 2024-12-25 15:24 | Emergency (ER) | payer OTHER, SELFPAY ==
[2024-12-25] VITALS (24 sets, daily range): BP systolic 153–230; BP diastolic 70–120; PULSE 76–96; RESP 17–93; TEMP 36.6; O2SAT 93–99; BMI 28.8
--- NOTE | 2024-12-25 | DI.RAD.S_ITS ---
PROCEDURE: XR FEMUR LT MIN 2V INDICATIONS: LEFT LEG PAIN TECHNIQUE: 2 views of the femur were acquired. COMPARISON: None. FINDINGS: Bones: No acute fractures or dislocations. No suspicious bony lesions. 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 Left total knee arthroplasty is present. Soft tissues: No suspicious soft tissue calcifications or masses. IMPRESSION: No acute osseous abnormality. If there is continued clinical concern or persistent symptoms, repeat radiographs or cross-sectional imaging (e.g. CT, MRI) may be helpful for further evaluation. Approved by: Rodolfo Savage M.D. on 12/25/2024 at 19:34
--- NOTE | 2024-12-25 | DI.RAD.S_ITS ---
PROCEDURE: XR PELVIS 1-2V INDICATIONS: LEFT HIP PAIN TECHNIQUE: Single AP view of the pelvis acquired. COMPARISON: [facility], [place], PET NECK TO MID THIGH, 09/28/2024, 10:31. FINDINGS: Bones: No acute fractures or dislocations. No suspicious bony lesions. Degenerative changes are seen in the hips and spine as well as the pubic symphysis. Soft tissues: Visualized bowel gas pattern is normal. No suspicious soft tissue calcifications. Contrast material is seen in the bladder. Surgical clips project over the right pelvis. IMPRESSION: No acute osseous abnormality. If symptoms persist or if there is continued clinical concern, cross-sectional imaging such as MRI or CT may be helpful for further evaluation. Approved by: Rodolfo Savage M.D. on 12/25/2024 at 19:37
--- NOTE | 2024-12-25 16:24 | ED_ITS ---
HPI - Fall <Brad Spencer, DO - Last Filed: 12/26/24 13:38> General Chief Complaint: Fall Stated Complaint: Fall, hit head left side of body Time Seen by Provider: 12/25/24 16:05 Source: patient and family Mode of arrival: Wheelchair History of Present Illness HPI Narrative: 89-year-old female history of follicular lymphoma idiopathic pulmonary fibrosis type 2 diabetes and dyslipidemia presents with unwitnessed syncopal episode today. Per daughter and granddaughter just came back from [place] yesterday and she isn't normally active person and she isn't moving and as sharp as she usually is as baseline.. Patient reports having radiation for lymphoma few weeks ago last treatment. She has not been checking her blood sugars as consistently as she would like to. Other than what is stated 14 point review of system is negative. Related Data Home Medications Medication Instructions Recorded Confirmed Fish Oil 1,200 mg PO DAILY ##0 02/27/13 11/15/24 cholecalciferol (vitamin D3) 25 1,000 units PO DAILY ##0 02/27/13 11/15/24 mcg (1,000 unit) capsule (Vitamin D3) vitamins A,C,N-cpaw-anehsv 4,296 1 cap PO BID 10/23/18 11/15/24 mcg-226 mg-90 mg capsule (PreserVision AREDS) escitalopram oxalate 10 mg tablet See Rx Instructions .Route .COMPLEX 07/04/24 11/15/24 Previous Rx's Medication Instructions Recorded cetirizine 10 mg tablet (Zyrtec) 10 mg PO DAILY PRN allergy 05/17/23 symptoms #90 tabs estradiol 0.01% (0.1 mg/gram) 0.5 appful vaginal DAILY #42.5 05/17/23 vaginal cream grams Disabled parking permit #1 ea 02/22/24 gabapentin 300 mg capsule See Rx Instructions .Route 02/22/24 .COMPLEX #90 caps losartan 25 mg tablet See Rx Instructions .Route 02/22/24 .COMPLEX #90 tabs metformin 500 mg tablet 500 mg PO DAILY #90 tabs 02/22/24 omeprazole 20 mg capsule,delayed See Rx Instructions .Route 02/22/24 release .COMPLEX #90 caps oxybutynin chloride 5 mg tablet See Rx Instructions .Route 02/22/24 .COMPLEX #90 tabs simvastatin 20 mg tablet See Rx Instructions .Route 02/22/24 .COMPLEX #90 tabs trazodone 50 mg tablet See Rx Instructions .Route 02/22/24 .COMPLEX #90 tabs blood sugar diagnostic (OneTouch #300 ea 09/21/24 Verio test strips) lancets 33 gauge #300 ea 09/21/24 hydrocodone 5 mg-acetaminophen 325 1 tab PO Q6H PRN pain #14 tabs 12/25/24 mg tablet Allergies Allergy/AdvReac Type Severity Reaction Status Date / Time No Known Drug Allergies Allergy Verified 11/15/24 14:00 Review of Systems <Brad Spencer, DO - Last Filed: 12/26/24 13:38> Review of Systems ROS Unobtainable: All systems reviewed & are unremarkable except as noted in HPI and below Patient History <Brad Spencer, DO - Last Filed: 12/26/24 13:38> Medical History Follicular lymphoma Encounter for subsequent annual wellness visit (AWV) in Medicare patient Allergic rhinitis Type II diabetes mellitus Distal radius fracture, right (10/09/17) Macular degeneration (2010) Partial blindness (2010) BCC (basal cell carcinoma of skin) (2012) Ankle pain (~1989) Chronic back pain (~1989) Fibromyalgia (~1989) Foot pain (2000) Fractures (2006) Gout (2000) Chronic cough (2013) Cataract (2011) Chicken pox (~1940) Measles (~1940) Mumps (~1940) Chronic headaches Depression (2000) Osteoarthritis (2012) Hypertension History of vaginal delivery Surgical History History of open reduction and internal fixation (ORIF) procedure (10/18/17) History of colonoscopy (12/18/09) Anesthesia Status post hemorrhoidectomy History of knee replacement (05/20/14) History of knee replacement (08/27/13) Status post discectomy (2001) Status post cholecystectomy (1986) Family History Brother Heart disease Hypertension Diabetes mellitus Sister Age: 79 Overweight Brother Cancer Hodgkin's disease Father Broken hip Mother Gallbladder disease Sister History of heart artery stent Grandfather No problems noted. Grandmother No problems noted. Grandfather No problems noted. Grandmother No problems noted. Social History Smoking Status: Never smoker alcohol intake: current substance use type: does not use Smoking Status: Never smoker alcohol intake frequency: a few times a month Exam <Brad Spencre, DO - Last Filed: 12/26/24 13:38> Narrative Exam Narrative: General:?Awake, alert and oriented. No acute distress. Well developed, hydrated and nourished. Appears stated age. Skin:?Skin in warm, dry and intact without rashes or lesions. Nailbeds pink with no cyanosis or clubbing. Head:?The head is normocephalic with TTP of R occipital parietal region with no redness, bleeding or laceration noted. NO visible or palpable masses, depressions, or scarring. Hair is of normal texture and evenly distributed. Eyes:?. Conjunctivae are clear without exudates or hemorrhage. Sclera is non- icteric. EOM are intact, PERRLA. Fundi appear normal including optic discs and vessels. No signs of nystagmus. Eyelids are normal in appearance without swelling or lesions. Ears:?The external ear and ear canal are non-tender and without swelling. The canal is clear without discharge. The tympanic membrane is normal in appearance with normal landmarks and cone of light. Hearing is intact with good acuity to whispered voice. Nose:?Nasal mucosa is pink and moist. The nasal septum is midline. Nares are patent bilaterally. Throat:?Oral mucosa is pink and moist with good dentition. Tongue normal in appearance without lesions and with good symmetrical movement. No buccal nodules or lesions are noted. The pharynx is normal in appearance without tonsillar swelling or exudates. Neck:?The neck is supple without adenopathy. Trachea is midline. Thyroid gland is normal without masses. Carotid pulse 2+ bilaterally without bruit. No JVD. Cardiac:?The external chest is normal in appearance without lifts, heaves, or thrills. PMI is not visible and is palpated in the 5th intercostal space at the midclavicular line. Heart rate and rhythm are normal. No murmurs, gallops, or rubs are auscultated. S1 and S2 are heard and are of normal intensity. Respiratory:?The chest wall is symmetric and without deformity. No signs of trauma. Chest wall is non-tender. No signs of respiratory distress. Lung sounds are clear in all lobes bilaterally without rales, ronchi, or wheezes. Resonance is normal upon percussion of all lung blackmon. Abdominal:?Abdomen is soft, symmetric, and non-tender without distention. There are no visible lesions or scars. The aorta is midline without bruit or visible pulsation. Umbilicus is midline without herniation. Bowel sounds are present and normoactive in all four quadrants. No masses, hepatomegaly, or splenomegaly are noted. Spine:?Neck and back are without deformity, external skin changes, or signs of trauma. Curvature of the cervical, thoracic, and lumbar spine are within normal limits for stated age. No tenderness noted on palpation of the spinous processes. Spinous processes are midline. Cervical, thoracic, and lumbar paraspinal muscles are not tender and are without spasm. Extremities:?Upper and lower extremities are atraumatic in appearance without tenderness or deformity except R hip TTP to palpate with no obvious deformity on exam.. No swelling or erythema. L Lateral elbow TTP with dec ROM in supination and pronation with soft tissue swelling around L lateral elbow, motor and sensory intact +2rad pulse cap refill <2secs. Full range of motion is noted to all joints but pain elicited on ROM in all directions of R hip exacerbated with IR and flexion.. Muscle strength is 5/5 bilaterally. Tendon function is normal. Capillary refill is less than 3 seconds in all extremities. Pulses palpable. Steady gait noted. Neurological:?The patient is awake, alert and oriented to person,and place with normal speech. Motor function is normal with muscle strength 5/5 bilaterally to upper and lower extremities. Sensation is intact bilaterally. Cranial nerves are intact. Cerebellar function is intact. Initial Vital Signs Initial Vital Signs: Vital Signs Temperature 97.9 F 12/25/24 15:28 Pulse Rate 80 12/25/24 15:28 Respiratory Rate 93 H 12/25/24 15:28 Blood Pressure 161/74 H 12/25/24 15:28 Pulse Oximetry 93 12/25/24 15:28 Oxygen Delivery Method Room Air 12/25/24 15:28 <Manny Gomez MD - Last Filed: 12/26/24 05:10> Initial Vital Signs Initial Vital Signs: Vital Signs Temperature 97.9 F 12/25/24 15:28 Pulse Rate 80 12/25/24 15:28 Respiratory Rate 93 H 12/25/24 15:28 Blood Pressure 161/74 H 12/25/24 15:28 Pulse Oximetry 93 12/25/24 15:28 Oxygen Delivery Method Room Air 12/25/24 15:28 Course <Brad Spencer DO - Last Filed: 12/26/24 13:38> Orders Ordered: Discontinued Medications Acetaminophen (Acetaminophen 325 Mg Tablet) 650 mg PO NOW ONE Stop: 12/25/24 17:48 Last Admin: 12/25/24 17:50 Dose: 650 mg Documented By: RAMON Hydrocodone Bitart/Acetaminophen (Hydrocodone/Acet 5/325 Prepack) 1 bottle MISC DIRECTED ONE Stop: 12/25/24 23:49 Last Admin: 12/26/24 00:00 Dose: 1 bottle Documented By: JABARI Hydrocodone Bitart/Acetaminophen (Hydrocodone/Acet 5/325 Tablet) 1 tab PO NOW ONE Stop: 12/25/24 23:49 Last Admin: 12/26/24 00:00 Dose: 1 tab Documented By: JABARI Lactated Ringer's (Lactated Ringers) 1,000 mls @ 1,000 mls/hr IV BOLUS ONE Stop: 12/25/24 18:27 Last Infusion: 12/25/24 20:03 Dose: Infused Documented By: Admin: 12/25/24 17:51 Dose: 1,000 mls/hr Documented By: RAMON Vital Signs Vital signs: Vital Signs - 8 hr 12/25/24 21:17 12/25/24 21:17 12/25/24 21:30 Pulse Rate 86 85 Respiratory Rate 32 H 26 H Blood Pressure 185/84 H Pulse Oximetry 98 98 Oxygen Delivery Method 12/25/24 21:30 12/25/24 21:47 12/25/24 21:47 Pulse Rate 96 H Respiratory Rate 20 Blood Pressure 175/77 H 204/100 H Pulse Oximetry 97 Oxygen Delivery Method 12/25/24 22:00 12/25/24 22:00 12/25/24 22:30 Pulse Rate 86 Respiratory Rate 22 Blood Pressure 177/82 H 168/72 H Pulse Oximetry 98 Oxygen Delivery Method Room Air 12/25/24 22:30 12/25/24 23:00 12/25/24 23:00 Pulse Rate 86 84 Respiratory Rate 23 28 H Blood Pressure 163/70 H Pulse Oximetry 98 98 Oxygen Delivery Method 12/25/24 23:30 12/25/24 23:30 Pulse Rate 83 Respiratory Rate 18 Blood Pressure 153/72 H Pulse Oximetry 98 Oxygen Delivery Method <Manny Gomez MD - Last Filed: 12/26/24 05:10> Orders Ordered: Discontinued Medications Acetaminophen (Acetaminophen 325 Mg Tablet) 650 mg PO NOW ONE Stop: 12/25/24 17:48 Last Admin: 12/25/24 17:50 Dose: 650 mg Documented By: RAMON Hydrocodone Bitart/Acetaminophen (Hydrocodone/Acet 5/325 Prepack) 1 bottle MISC DIRECTED ONE Stop: 12/25/24 23:49 Last Admin: 12/26/24 00:00 Dose: 1 bottle Documented By: JABARI Hydrocodone Bitart/Acetaminophen (Hydrocodone/Acet 5/325 Tablet) 1 tab PO NOW ONE Stop: 12/25/24 23:49 Last Admin: 12/26/24 00:00 Dose: 1 tab Documented By: JABARI Lactated Ringer's (Lactated Ringers) 1,000 mls @ 1,000 mls/hr IV BOLUS ONE Stop: 12/25/24 18:27 Last Infusion: 12/25/24 20:03 Dose: Infused Documented By: Admin: 12/25/24 17:51 Dose: 1,000 mls/hr Documented By: RAMON Vital Signs Vital signs: Vital Signs - 8 hr 12/25/24 21:17 12/25/24 21:17 12/25/24 21:30 Pulse Rate 86 85 Respiratory Rate 32 H 26 H Blood Pressure 185/84 H Pulse Oximetry 98 98 Oxygen Delivery Method 12/25/24 21:30 12/25/24 21:47 12/25/24 21:47 Pulse Rate 96 H Respiratory Rate 20 Blood Pressure 175/77 H 204/100 H Pulse Oximetry 97 Oxygen Delivery Method 12/25/24 22:00 12/25/24 22:00 12/25/24 22:30 Pulse Rate 86 Respiratory Rate 22 Blood Pressure 177/82 H 168/72 H Pulse Oximetry 98 Oxygen Delivery Method Room Air 12/25/24 22:30 12/25/24 23:00 12/25/24 23:00 Pulse Rate 86 84 Respiratory Rate 23 28 H Blood Pressure 163/70 H Pulse Oximetry 98 98 Oxygen Delivery Method 12/25/24 23:30 12/25/24 23:30 Pulse Rate 83 Respiratory Rate 18 Blood Pressure 153/72 H Pulse Oximetry 98 Oxygen Delivery Method MDM - Fall <Brad Spencer, DO - Last Filed: 12/26/24 13:38> Lab Data 12/25/24 16:30 12/25/24 16:30 Labs: Lab Results 12/25/24 Range/Units 16:30 WBC 6.7 (4.5-11.0) X10^3/uL RBC 3.73 L (4.0-5.2) X10^6/uL Hgb 11.0 L (12.0-16.0) g/dL Hct 32.8 L (36-46) % MCV 87.8 (80-100) fL MCH 29.6 (26-34) PG MCHC 33.7 (30-36) % RDW 15.2 H (11.6-14.8) % Plt Count 253 (150-400) X10^3/uL Neut % (Auto) 78.1 H (50-75) % Lymph % (Auto) 14.2 L (25-40) % [place] % (Auto) 5.9 (3-14) % Eos % (Auto) 1.3 L (2-4) % Baso % (Auto) 0.5 (0-2) % Neut # (Auto) 5200 (0139-2644) /uL Lymph # (Auto) 900 L (6198-4128) /uL [place] # (Auto) 400 (0-900) /uL Eos # (Auto) 100 (0-450) /uL Baso # (Auto) 0 (0-100) /uL Sodium 137 (137-145) mmol/L Potassium 4.5 (3.4-5.1) mmol/L Chloride 100 (98-107) mmol/L Carbon Dioxide 31 (22-32) mmol/L BUN 18 H (7-17) mg/dL Creatinine 0.70 (0.52-1.04) mg/dL Estimated GFR > 60 (>60) mL/min BUN/Creatinine Ratio 25.7 H (6-22) Glucose 127 H (70-99) mg/dL Calcium 9.4 (8.4-10.2) mg/dL Total Bilirubin 0.5 (0.2-1.3) mg/dL AST 28 (14-36) IU/L ALT 16 (<35) IU/L Alkaline Phosphatase 68 (38-126) U/L Total Creatine Kinase 47 (30-135) U/L Troponin I < 0.012 (0.01-0.034) ng/mL Total Protein 6.7 (6.3-8.2) g/dL Albumin 3.9 (3.5-5.0) g/dL Globulin 2.8 (1.7-4.1) g/dL Albumin/Globulin Ratio 1.4 (1.0-2.8) Lipase 15 L (23-300) U/L Urine Dip Bedside Urine Glucose Negative Bedside Urine Bilirubin - Negative Bedside Urine Ketone - Negative Urine Specific [place] 1.005 Bedside Urine Occult Blood - Negative Bedside Urine pH 7.5 Bedside Urine Protein - Negative Bedside Urine Urobilinogen - Negative Bedside Urine Nitrite - Negative Bedside Urine Leukocytes +/- 15 Esterase ECG Data Interpretation: NSR HR 69 AK 236 QRS 84 QT [address]- t wave change Unchanged from 08/10/21 MDM Narrative Medical decision making narrative: All lab work, nurse triage note, medication list, previous ER visits, and vital signs all reviewed. Differential diagnosis includes CVA, TIA, subdural, pneumothorax, rib fractures, contusion, dehydration, hypoglycemia. Pending imaging studies signed out to Dr. Gomez at shift change pending final disposition. <Manny Gomez MD - Last Filed: 12/26/24 05:10> Lab Data Labs: Lab Results 12/25/24 Range/Units 16:30 WBC 6.7 (4.5-11.0) X10^3/uL RBC 3.73 L (4.0-5.2) X10^6/uL Hgb 11.0 L (12.0-16.0) g/dL Hct 32.8 L (36-46) % MCV 87.8 (80-100) fL MCH 29.6 (26-34) PG MCHC 33.7 (30-36) % RDW 15.2 H (11.6-14.8) % Plt Count 253 (150-400) X10^3/uL Neut % (Auto) 78.1 H (50-75) % Lymph % (Auto) 14.2 L (25-40) % [place] % (Auto) 5.9 (3-14) % Eos % (Auto) 1.3 L (2-4) % Baso % (Auto) 0.5 (0-2) % Neut # (Auto) 5200 (6577-3827) /uL Lymph # (Auto) 900 L (5025-9678) /uL [place] # (Auto) 400 (0-900) /uL Eos # (Auto) 100 (0-450) /uL Baso # (Auto) 0 (0-100) /uL Sodium 137 (137-145) mmol/L Potassium 4.5 (3.4-5.1) mmol/L Chloride 100 (98-107) mmol/L Carbon Dioxide 31 (22-32) mmol/L BUN 18 H (7-17) mg/dL Creatinine 0.70 (0.52-1.04) mg/dL Estimated GFR > 60 (>60) mL/min BUN/Creatinine Ratio 25.7 H (6-22) Glucose 127 H (70-99) mg/dL Calcium 9.4 (8.4-10.2) mg/dL Total Bilirubin 0.5 (0.2-1.3) mg/dL AST 28 (14-36) IU/L ALT 16 (<35) IU/L Alkaline Phosphatase 68 (38-126) U/L Total Creatine Kinase 47 (30-135) U/L Troponin I < 0.012 (0.01-0.034) ng/mL Total Protein 6.7 (6.3-8.2) g/dL Albumin 3.9 (3.5-5.0) g/dL Globulin 2.8 (1.7-4.1) g/dL Albumin/Globulin Ratio 1.4 (1.0-2.8) Lipase 15 L (23-300) U/L Urine Dip Bedside Urine Glucose Negative Bedside Urine Bilirubin - Negative Bedside Urine Ketone - Negative Urine Specific [place] 1.005 Bedside Urine Occult Blood - Negative Bedside Urine pH 7.5 Bedside Urine Protein - Negative Bedside Urine Urobilinogen - Negative Bedside Urine Nitrite - Negative Bedside Urine Leukocytes +/- 15 Esterase Imaging Data X-ray left elbow: Radiologist's Impression: [address] [address] XRay Report Signed Patient: Elaina Gonzalez MR#: [id number] : 1935 Acct:[id number] Age/Sex: 89 / F Date of Service: 12/25/24 Loc: ED Accession Number: [id number] Procedure: XR elbow LT min 3V Ordering Provider: Brad Spencer D.O. PROCEDURE: XR ELBOW LT MIN 3V INDICATIONS: fall, swelling, brusing, pain TECHNIQUE: 3 views of the elbow were acquired. COMPARISON: None. FINDINGS: Bones: No acute fractures or dislocations. No suspicious bony lesions. Soft tissues: No elbow joint effusion. No suspicious soft tissue calcifications. IMPRESSION: No acute osseous abnormality. If there is continued clinical concern or persistent symptoms, repeat radiographs or cross-sectional imaging (e.g. CT, MRI) may be helpful for further evaluation. Approved by: Rodolfo Savage M.D. on 12/25/2024 at 17:35 CT scan - head: Radiologist's Impression: [address] [address] [address] Scan Report Signed Patient: Elaina Gonzalez MR#: [id number] : 1935 Acct:[id number] Age/Sex: 89 / F Date of Service: 12/25/24 Loc: ED Accession Number: [id number] Procedure: CT head/brain wo con Ordering Provider: Brad Spencer D.O. PROCEDURE: CT HEAD/BRAIN WO CON INDICATIONS: Syncope TECHNIQUE: Noncontrast 4.5 mm thick angled axial sections acquired from the foramen magnum to the vertex, with coronal and sagittal reformats. For radiation dose reduction, the following was used: automated exposure control, adjustment of mA and/or kV according to patient size. COMPARISON: None. FINDINGS: Image quality: Diagnostic. CSF spaces: Basal cisterns are patent. No extra-axial fluid collections. The ventricles are symmetric in size and shape. Brain: No acute intracranial hemorrhage or mass effect. There is cerebral volume loss, with resultant ventricular and sulcal prominence. There are periventricular and deep white matter chronic small vessel ischemic changes. There is intracranial internal carotid artery atherosclerosis. Skull and face: Calvarium and visualized facial bones appear intact, without suspicious lesions. Sinuses: Visualized sinuses and mastoids are clear. IMPRESSION: 1. No acute intracranial pathology. 2. Moderate chronic microvascular ischemic changes and generalized parenchymal volume loss. Approved by: Rodolfo Savage M.D. on 12/25/2024 at 17:13 CT angiogram head and neck vessels: Radiologist's Impression: Close Elbow X-Ray (Signed) Rodolfo Savage - 12/25/24 Head/Neck CTA (Signed) Rodolfo Savage - 12/25/[address] (Signed) Rodolfo Savage - 12/25/24 Chest CTA (Signed) Rodolfo Savage - 12/25/24 Launch?[place] [address] CT Scan Report Signed Patient: Elaina Gonzalez MR#: [id number] : 1935 Acct:[id number] Age/Sex: 89 / F Date of Service: 12/25/24 Loc: ED Accession Number: [id number] Procedure: CT angio head and neck Ordering Provider: Brad Spencer D.O. PROCEDURE: CT ANGIO HEAD AND NECK INDICATIONS: syncope TECHNIQUE: After the administration of intravenous contrast, 1 mm thick sections acquired from the aortic arch through the [place] of Quick. 3-dimensional uojcoax-zigokizrr-gvwqukaaod (MIP) and/or volume rendering reformats were acquired of the central intracranial vasculature and neck separately. For radiation dose reduction, the following was used: automated exposure control, adjustment of mA and/or kV according to patient size. COMPARISON: [facility], [place], PET NECK TO MID THIGH, 09/28/2024, 10:31. [facility], CT, CT HEAD/BRAIN WO CON, 12/25/2024, 16:38. FINDINGS: Image quality: Diagnostic. BRAIN: Please see the separately dictated report from the noncontrast CT of the head performed at the same time. No abnormal intracranial arterial-phase enhancement. HEAD CT ANGIOGRAPHY: Anterior circulation: Intracranial internal carotid arteries demonstrate atherosclerotic calcifications without significant stenosis.. The flow within the paired anterior cerebral arteries is normal and symmetric. The flow within the middle cerebral arteries is normal and symmetric. The anterior communicating artery is seen. No aneurysms are seen. Posterior circulation: Visualized portions of the vertebral arteries demonstrate normal caliber, and join to form a normal appearing basilar artery. type origin of the right RESPIRATORY PRACTITIONER, a normal anatomic variant. Patent left posterior communicating artery is also seen. Flow within the posterior cerebral arteries is normal and symmetric. No aneurysms are seen. NECK CT ANGIOGRAPHY: Carotid system: The great vessels demonstrate a conventional anatomy as they arise from the aortic arch. The origins of the common carotid arteries appear patent. The common carotid arteries demonstrate normal caliber and courses. The bifurcation regions demonstrate atherosclerotic calcifications without hemodynamically significant stenosis.. The internal carotid arteries demonstrate normal calibers and courses. Posterior circulation: The origins of the vertebral arteries both appear widely patent. Right vertebral artery is congenitally dominant. The more superior extracranial portions of both vertebral arteries also demonstrate normal courses and calibers. They join to form a normal appearing basilar artery. Soft tissues: Visualized neck soft tissues demonstrate no suspicious abnormalities. Probable chronic post treatment changes in the right parotid and inferior auricular region. Mild soft tissue attenuation is seen without a definite masslike lesion. No cervical lymphadenopathy. Peripheral reticulations in the lung apices. Bones: No suspicious bony lesions. Multilevel degenerative changes in the included spine. IMPRESSION: No significant intracranial arterial abnormality is seen. No significant abnormality is seen within the arteries of the neck. Any quantitative measurements of stenosis were performed using NASCET criteria. Approved by: Rodolfo Savage M.D. on 12/25/2024 at 17:20 CT angiogram chest: Radiologist's Impression: [place] [address] CT Scan Report Signed Patient: Elaina Gonzalez MR#: [id number] : 1935 Acct:[id number] Age/Sex: 89 / F Date of Service: 12/25/24 Loc: ED Accession Number: [id number] Procedure: CT angio chest PE protocol Ordering Provider: Brad Spencer D.O. PROCEDURE: CT ANGIO CHEST PE PROTOCOL INDICATIONS: Syncope TECHNIQUE: After the administration of intravenous contrast, 2 mm thick sections acquired from the pulmonary apices to the posterior costophrenic angles. 3-dimensional maximum intensity projection (MIP) coronal and sagittal reformats were then acquired through the thorax. For radiation dose reduction, the following was used: automated exposure control, adjustment of mA and/or kV according to patient size. COMPARISON: [facility], CT, CT CHEST HIGH RESOLUTION, 10/17/2024, 9:26. FINDINGS: Image quality: Diagnostic. Pulmonary arteries: Pulmonary arteries are normal in size, and demonstrate no intraluminal filling defects to suggest central pulmonary embolism. Lower Neck: No enlarged lymph nodes. Thyroid: No thyroid nodules which require sonographic follow up, per consensus guidelines. Axillae: No enlarged lymph nodes. Chest Wall: Unremarkable. Bones: Unremarkable. Lungs and Pleura: No pneumothorax or pleural effusions. Peripheral reticulations are seen in the lungs bilaterally with traction bronchiectasis but no honeycombing. Stable 5 mm nodule at the right lower lobe (5/224). No acute consolidation. Accessory azygos fissure. Heart: Heart size is mildly enlarged. No pericardial effusion. Mild coronary artery calcifications. Thoracic Vessels: No aortic aneurysm. Mediastinum and Johana: No enlarged lymph nodes. Esophagus: No wall thickening. No hiatal hernia. Upper Abdomen: Visualized upper abdomen solid organs and bowel loops appear normal. IMPRESSION: 1. No acute pulmonary embolus. No acute abnormality is seen in the chest. 2. 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 3. Stable right lower lobe 5 mm nodule. No acute cardiopulmonary process. Approved by: Rodolfo Savage M.D. on 12/25/2024 at 17:31 MDM Narrative Medical decision making narrative: All lab work, nurse triage note, medication list, previous ER visits, and vital signs all reviewed. Differential diagnosis includes CVA, TIA, subdural, pneumothorax, rib fractures, contusion, dehydration, hypoglycemia. Pending imaging studies signed out to Dr. Gomez at shift change pending final disposition. 12/25/24, Jason Alcala. Sign-out from Dr. Mack. 89-year-old female with recent fall of unclear etiology, not necessarily mechanical, workup initiated to look for secondary causes. Labs sent. CT head and CTA chest ordered. She has hip pain. X-ray with hip and ipsilateral femur also ordered after discussion with x-ray tech. Assumed care. EKG reviewed independently by me, was taken at 4:41 p.m. Sinus rhythm with first-degree AV block, AK 236, no obvious ST segment elevation or depression changes. T-wave inversion lead 3 noted but upright in contiguous inferior leads. QRS 84, QTC 439. CT brain noncontrast. No acute changes. See radiology report. CT angiogram head and neck vessels. No thrombosis or significant narrowing noted. See radiology report. CT angiogram chest. No acute pulmonary embolus, no acute changes noted. Interstitial lung disease noted. Small stable 5 mm lung nodule noted. See radiology report. X-ray pelvis. No acute changes. See radiology report. X-ray left femur. No acute changes. See radiology report. Patient able to ambulate, has left hip area discomfort. We discussed additional CT imaging of the hip/pelvis, she declines this for now. Hydrocodone as needed for pain control. Dose given now. Home pack provided. Prescription sent to her pharmacy. Recheck with your regular doctor advised in the next 2-3 days. Return precautions discussed. Discharge Plan Departure Patient Disposition: Home Clinical Impression: Fall, Contusion of left hip Activity Restrictions/Additional Instructions: Fall of unclear etiology. X-ray blood test CT scan of the head, CT scan of the neck vessels, CT angiogram of the chest were performed to see if there is any cause of fall that could be identified, which was unrevealing. There is a 5 mm diameter pulmonary nodule noted incidentally on your chest CT scan that was stable from prior studies, further follow up as an outpatient. X-rays were performed of your pelvis and your left hip which had no fracture. You were able to ambulate to the bathroom. We discussed CT imaging of the pelvis further imaging, declined for now. Pain medications to use at home. Recheck with your regular doctor in the next 2-3 days. Return to this/nearest emergency department for any change worsening symptoms or any concerns prior. Prescriptions: New hydrocodone-acetaminophen 5-325 mg tablet 1 tab PO Q6H PRN (Reason: pain) Qty: 14 0RF No Action Fish Oil 1,200 mg PO DAILY Qty: 0 cholecalciferol (vitamin D3) [Vitamin D3] 1,000 unit Capsule 1,000 units PO DAILY Qty: 0 (DME) lancets 33 gauge misc See Dose Instructions .ROUTE .MEDSUPPLY Qty: 300 6RF Dose Instruction: As directed Rx Instructions: use to check blood sugars 2 to 3 times daily as directed (DME) OneTouch Verio test strips Strip See Rx Instructions .ROUTE .COMPLEX Qty: 300 1RF Dose Instruction: Use to test blood sugar 2-3 times daily. Rx Instructions: Use to test blood sugar 2-3 times daily. PreserVision AREDS [phone] afee-rx-jdfx capsule 1 cap PO BID estradiol 0.01 % (0.1 mg/gram) cream 0.5 appful vaginal DAILY Qty: 42.5 11RF Rx Instructions: for 7 days. then 0.25 appful twice/week cetirizine [Zyrtec] 10 mg tablet 10 mg PO DAILY PRN (Reason: allergy symptoms) Qty: 90 3RF (DME) Disabled parking permit See Rx Instructions .ROUTE .MEDSUPPLY Qty: 1 0RF Rx Instructions: I find this patient to be medically disabled and qualified for disabled parking as indicated, and signed, on the accompanying disabled parking application for individuals. gabapentin 300 mg capsule See Rx Instructions .ROUTE .COMPLEX Qty: 90 3RF Dose Instruction: TAKE 1 CAPSULE BY MOUTH AT BEDTIME Rx Instructions: TAKE 1 CAPSULE BY MOUTH AT BEDTIME losartan 25 mg tablet See Rx Instructions .ROUTE .COMPLEX Qty: 90 3RF Hold Instructions: needs labs Dose Instruction: TAKE 1 TABLET BY MOUTH EVERY DAY Rx Instructions: TAKE 1 TABLET BY MOUTH EVERY DAY metformin 500 mg tablet 500 mg PO DAILY Qty: 90 3RF Hold Instructions: Needs labs omeprazole 20 mg capsule,delayed release(DR/EC) See Rx Instructions .ROUTE .COMPLEX Qty: 90 3RF Dose Instruction: TAKE 1 CAPSULE BY MOUTH EVERY DAY Rx Instructions: TAKE 1 CAPSULE BY MOUTH EVERY DAY oxybutynin chloride 5 mg tablet See Rx Instructions .ROUTE .COMPLEX Qty: 90 3RF Dose Instruction: TAKE 1 TABLET BY MOUTH EVERY DAY Rx Instructions: TAKE 1 TABLET BY MOUTH EVERY DAY simvastatin 20 mg tablet See Rx Instructions .ROUTE .COMPLEX Qty: 90 3RF Hold Instructions: Needs labs Dose Instruction: TAKE 1 TABLET BY MOUTH EVERY DAY Rx Instructions: TAKE 1 TABLET BY MOUTH EVERY DAY trazodone 50 mg tablet See Rx Instructions .ROUTE .COMPLEX Qty: 90 3RF Dose Instruction: TAKE 1 TABLET BY MOUTH AT BEDTIME Rx Instructions: TAKE 1 TABLET BY MOUTH AT BEDTIME escitalopram oxalate 10 mg tablet See Rx Instructions .ROUTE .COMPLEX Dose Instruction: TAKE 1 TABLET BY MOUTH EVERY DAY Rx Instructions: TAKE 1 TABLET BY MOUTH EVERY other day Referrals: Parvez Quinones DO [Primary Care Provider] - Stand Alone Forms: Patient Portal/API/Survey
--- NOTE | 2024-12-25 16:29 | DI.CT.S_ITS ---
PROCEDURE: CT ANGIO HEAD AND NECK INDICATIONS: syncope TECHNIQUE: After the administration of intravenous contrast, 1 mm thick sections acquired from the aortic arch through the [place] of [employer]. 3-dimensional tldxcnr-endcnbjzj-eghuryvlih (MIP) and/or volume rendering reformats were acquired of the central intracranial vasculature and neck separately. For radiation dose reduction, the following was used: automated exposure control, adjustment of mA and/or kV according to patient size. COMPARISON: [facility], MD, PET NECK TO MID THIGH, 09/28/2024, 10:31. [facility], CT, CT HEAD/BRAIN WO CON, 12/25/2024, 16:38. FINDINGS: Image quality: Diagnostic. BRAIN: Please see the separately dictated report from the noncontrast CT of the head performed at the same time. No abnormal intracranial arterial-phase enhancement. HEAD CT ANGIOGRAPHY: Anterior circulation: Intracranial internal carotid arteries demonstrate atherosclerotic calcifications without significant stenosis.. The flow within the paired anterior cerebral arteries is normal and symmetric. The flow within the middle cerebral arteries is normal and symmetric. The anterior communicating artery is seen. No aneurysms are seen. Posterior circulation: Visualized portions of the vertebral arteries demonstrate normal caliber, and join to form a normal appearing basilar artery. type origin of the right [employer], a normal anatomic variant. Patent left posterior communicating artery is also seen. Flow within the posterior cerebral arteries is normal and symmetric. No aneurysms are seen. NECK CT ANGIOGRAPHY: Carotid system: The great vessels demonstrate a conventional anatomy as they arise from the aortic arch. The origins of the common carotid arteries appear patent. The common carotid arteries demonstrate normal caliber and courses. The bifurcation regions demonstrate atherosclerotic calcifications without hemodynamically significant stenosis.. The internal carotid arteries demonstrate normal calibers and courses. Posterior circulation: The origins of the vertebral arteries both appear widely patent. Right vertebral artery is congenitally dominant. The more superior extracranial portions of both vertebral arteries also demonstrate normal courses and calibers. They join to form a normal appearing basilar artery. Soft tissues: Visualized neck soft tissues demonstrate no suspicious abnormalities. Probable chronic post treatment changes in the right parotid and inferior auricular region. Mild soft tissue attenuation is seen without a definite masslike lesion. No cervical lymphadenopathy. Peripheral reticulations in the lung apices. Bones: No suspicious bony lesions. Multilevel degenerative changes in the included spine. IMPRESSION: No significant intracranial arterial abnormality is seen. No significant abnormality is seen within the arteries of the neck. Any quantitative measurements of stenosis were performed using NASCET criteria. Approved by: Rodolfo Savage M.D. on 12/25/2024 at 17:20
[2024-12-25 16:41] LABS: Add Manual Diff / Slide Review NO; Basophils Absolute Auto 0 /uL (0-100); Basophils Percent Auto 0.5 % (0-2); Eosinophils Absolute Auto 100 /uL (0-450); Eosinophils Percent Auto 1.3 % (2-4); Hematocrit 32.8 % (36-46); Lymphocytes Absolute Auto 900 /uL (1100-4500); Lymphocytes Percent Auto 14.2 % (25-40); Mean Corpuscular HGB Conc 33.7 % (30-36); Mean Corpuscular Hemoglobin 29.6 PG (26-34); Mean Corpuscular Volume 87.8 fL (80-100); Monocytes Absolute Auto 400 /uL (0-900); Monocytes Percent Auto 5.9 % (3-14); Neutrophils Absolute Auto 5200 /uL (1500-7000); Neutrophils Percent Auto 78.1 % (50-75); Platelet Count 253 X10^3/uL (150-400); Red Blood Cell Count 3.73 X10^6/uL (4.0-5.2); Red Cell Distribution Width 15.2 % (11.6-14.8); White Blood Cell Count 6.7 X10^3/uL (4.5-11.0)
--- NOTE | 2024-12-25 16:41 | EKG_ITS ---
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
--- NOTE | 2024-12-25 16:43 | DI.RAD.S_ITS ---
PROCEDURE: XR ELBOW LT MIN 3V INDICATIONS: fall, swelling, brusing, pain TECHNIQUE: 3 views of the elbow were acquired. COMPARISON: None. FINDINGS: Bones: No acute fractures or dislocations. No suspicious bony lesions. Soft tissues: No elbow joint effusion. No suspicious soft tissue calcifications. IMPRESSION: No acute osseous abnormality. If there is continued clinical concern or persistent symptoms, repeat radiographs or cross-sectional imaging (e.g. CT, MRI) may be helpful for further evaluation. Approved by: Rodolfo Savage M.D. on 12/25/2024 at 17:35
[2024-12-25 16:58] LABS: Alanine Aminotransferase 16 IU/L (<35); Albumin 3.9 g/dL (3.5-5.0); Albumin Globulin Ratio 1.4 (1.0-2.8); Alkaline Phosphatase 68 U/L (38-126); Aspartate Aminotransferase 28 IU/L (14-36); BUN Creatinine Ratio 25.7 (6-22); Bilirubin Total 0.5 mg/dL (0.2-1.3); Blood Urea Nitrogen 18 mg/dL (7-17); Calcium 9.4 mg/dL (8.4-10.2); Carbon Dioxide 31 mmol/L (22-32); Chloride 100 mmol/L (98-107); Creatine Kinase 47 U/L (30-135); Estimated Glomerular Filt Rate > 60 mL/min (>60); Globulin 2.8 g/dL (1.7-4.1); Glucose 127 mg/dL (70-99); HEMOLYSIS < 15 (0-50); Lipase 15 U/L (23-300); Potassium 4.5 mmol/L (3.4-5.1); Sodium 137 mmol/L (137-145); Total Protein 6.7 g/dL (6.3-8.2)
[2024-12-25 17:10] LABS: Troponin I < 0.012 ng/mL (0.01-0.034)
[2024-12-25] MEDS: ACETAMINOPHEN 325 MG TABLET 650 MG PO (17:50)
[2024-12-25] MEDS: LACTATED RINGERS 1,000 ML 1000 ML IV (17:51)
[2024-12-26] MEDS: HYDROCODONE/ACET 5/325 PREPACK 1 BOTTLE MISC
[2024-12-26] MEDS: HYDROCODONE/ACET 5/325 TABLET 1 TAB PO
--- NOTE | 2024-12-26 00:17 | PC.NURSE ---
Left voicemail to pt's daughter to come get pt. she is discharged. pt wants to wait in waiting room for her family to come get her.
== END 2024-12-26 00:19 | disposition home or self-care (01) ==
PROVIDERS: Family Medicine; Emergency Provider Emergency Medicine; PCP Family Medicine
DX: S70.02XA Contusion of left hip, initial encounter (principal); R55 Syncope and collapse; C82.90 Follicular lymphoma, unspecified, unspecified site; E11.9 Type 2 diabetes mellitus without complications; I44.0 Atrioventricular block, first degree; W19.XXXA Unspecified fall, initial encounter
CPT/HCPCS: 36415; 70450; 70496; 70498; 71275; 72170; 72192; 73080; 73552; 80053; 81003; 82550; 83690; 84484; 85025; 93005; 96360; 96361; 99284; Q9967

== ENCOUNTER → 2025-02-27 14:28 | Outpatient (CLI) | payer OTHER, SELFPAY ==
[2025-02-27 14:49] LABS: Appearance Urine UA CLEAR; Bilirubin Urine UA NEGATIVE (NEGATIVE); Color Urine UA YELLOW; Glucose Urine UA NEGATIVE (Negative); Ketones Urine UA NEGATIVE (NEGATIVE); Leukocyte Esterase Urine UA TRACE (NEGATIVE); Nitrite Urine UA NEGATIVE (Negative); Occult Blood Urine UA NEGATIVE (Negative); Protein Urine UA TRACE (Negative); Specific Gravity Urine UA 1.025 (1.000-1.035); Urobilinogen Urine UA 0.2 E.U./dL (0.2); pH Urine UA 5.5 (4.5-8.0)
[2025-02-27 14:50] LABS: Culture Indicated Urine Cult Not Indicated
[2025-02-27 14:51] LABS: Hematocrit 34.8 % (36-46); Hemoglobin 11.6 g/dL (12.0-16.0); Mean Corpuscular HGB Conc 33.4 % (30-36); Mean Corpuscular Hemoglobin 29.6 PG (26-34); Mean Corpuscular Volume 88.5 fL (80-100); Platelet Count 264 X10^3/uL (150-400)
[2025-02-27 14:56] LABS: Hemoglobin A1C% w Est Avg Glu 5.5 % (4.0-6.0)
[2025-02-27 15:25] LABS: Alanine Aminotransferase 13 IU/L (<35); Albumin 4.1 g/dL (3.5-5.0); Albumin Globulin Ratio 1.5 (1.0-2.8); Alkaline Phosphatase 81 U/L (38-126); Blood Urea Nitrogen 17 mg/dL (7-17); Calcium 9.8 mg/dL (8.4-10.2); Carbon Dioxide 30 mmol/L (22-32); Chloride 100 mmol/L (98-107); Estimated Glomerular Filt Rate > 60 mL/min (>60); Globulin 2.7 g/dL (1.7-4.1); Glucose 165 mg/dL (70-99); HEMOLYSIS < 15 (0-50); Potassium 4.2 mmol/L (3.4-5.1); Sodium 135 mmol/L (137-145); Total Protein 6.8 g/dL (6.3-8.2)
[2025-02-27 15:55] LABS: TSH w/ Reflex to FT4 1.82 uIU/mL (0.47-4.68)
== END ==
PROVIDERS: PCP Family Medicine; Referring Provider Family Medicine; Visit Provider Family Medicine
DX: E11.29 Type 2 diabetes mellitus with other diabetic kidney complication (principal); R80.9 Proteinuria, unspecified; R53.82 Chronic fatigue, unspecified; R30.0 Dysuria; C82.91 Follicular lymphoma, unspecified, lymph nodes of head, face, and neck; J84.9 Interstitial pulmonary disease, unspecified
CPT/HCPCS: 36415; 80053; 81001; 83036; 84443; 85027